=== PATIENT | female | born 1990 | race Caucasian/White ===

== ENCOUNTER → 2017-05-14 09:40 | Outpatient (CLI) | payer BC, SELFPAY ==
--- NOTE | 2017-05-14 09:45 | US_ITS ---
US OB /maternal detail: INDICATION: ITS.REASON: 20 wk+ Anatomy Scan ORDERING PHYSICIAN: Arron Nielson MD PATIENT AGE: 26 years TECHNIQUE: ultrasound transabdominal scanning. COMPARISON: No previous relevant studies. FINDINGS: Single viable intrauterine gestation. Breech position. Placenta: Anterior placenta grade 1. There is average amount fluid. The cervix appears satisfactory. Closed and measuring 3 cm in length. Complete survey performed and was unremarkable on the submitted images as in PACS. No discrete anomalies identified on survey imaging by technologist. Active fetus. Three-vessel cord with satisfactory umbilical cord insertion. 4- chamber heart noted. Survey of brain & ventricles. Face and neck survey unremarkable. Diaphragm and chest views unremarkable. Abdomen: Both kidneys noted and unremarkable. Stomach noted and satisfactory. Spine: Survey of the spine satisfactory with no anomalies identified nor imaged. Both arms and legs noted. Amniotic Fluid: Adequate. Maternal adnexa: No significant findings. Measurements: Average ultrasound age 19 weeks 2 days. Gestational Age 20 weeks 2 days. Estimated due date by ultrasound age 610/06/2017. Estimated weight 286 grams. This is 8 th percentile based on last menstrual period BPD = 19 weeks 1 day OFD = 20 weeks 4 days HC = 19 weeks 2 days AC = 19 weeks 4 days FL = 19 weeks 1 day Heart Rate = 158 BPM Cerebellum = 20 weeks 0 days Humerus = 18 weeks 5 days HC/AC is 1.16. CI is 71%. FL/BPD is 69%. FL/AC is 21%. IMPRESSION: There is a single live fetus in breech presentation with average ultrasound age of 19 weeks 2 days. No obvious anomalies. Please see above for detail
== END ==
PROVIDERS: Family Provider Emergency Medicine; PCP Nurse Practitioner Family; Visit Provider Nurse Practitioner Obstetrics & Gynecology
DX: Z36.0 Encounter for antenatal screening for chromosomal anomalies (principal)
CPT/HCPCS: 76811

== ENCOUNTER 2017-08-28 09:14 | Outpatient (CLI) | payer BC, SELFPAY ==
[2017-08-28 09:38] VITALS: BP 122/69; PULSE 75; RESP 18; TEMP 36.6; O2SAT 99; BMI 31.8
[2017-08-28 10:41] LABS: Basophils % 0.3 % (0.1-2.0); Eosinophils # 0.1 K/mm3 (0.0-0.4); Eosinophils % 0.9 % (0.1-12.0); Hematocrit 33.9 % (37.0-47.0); Hemoglobin 11.2 g/dL (12.2-16.2); Lymphocytes # 1.8 K/mm3 (0.7-4.5); Lymphocytes % 15.6 K/mm3 (10-50); Mean Corpuscular HGB Conc 33.2 g/dL (31.8-35.4); Mean Corpuscular Hemoglobin 29.5 pg (27.0-31.2); Mean Corpuscular Volume 88.9 fl (81-99); Mean Platelet Volume 8.4 fl (7.4-10.4); Monocytes # 0.7 K/mm3 (0.1-1.0); Neutrophils # 8.7 K/mm3 (1.8-7.8); Neutrophils % 77.2 % (37.0-80.0); Platelet Count 304 K/mm3 (142-424); Red Blood Count 3.81 M/mm3 (4.20-5.40); Red Cell Distribution Width 12.7 % (11.5-17.5); White Blood Count 11.3 K/mm3 (4.8-10.8)
[2017-08-28 10:52] LABS: Alanine Aminotransferase 14 U/L (12-78); Albumin Level 2.5 gm/dL (3.4-5.0); Albumin/Globulin Ratio 0.6 (1.1-1.8); Alkaline Phosphatase 78 U/L (46-116); Anion Gap 15.1 mEq/L (5-15); Aspartate Amino Transferase 13 U/L (15-37); Bilirubin,Total 0.2 mg/dL (0.2-1.0); Blood Urea Nitrogen 14 mg/dL (7-18); Calcium 8.5 mg/dL (8.5-10.1); Carbon Dioxide 22 mmol/L (21.0-32.0); Chloride 105 mmol/L (98-107); Creatinine Clearance Estimated 189 mL/min (0-300); Creatinine,Serum 0.67 mg/dL (0.55-1.02); Estimated Glomerular Filt Rate 106 ml/min (>60); GFR (African American) 128 ML/MIN (>60); Globulin 4.4 gm/dl (1.3-3.2); Glucose 99 mg/dL (74-106); Potassium 4.1 mmoL/L (3.5-5.1); Sodium 138 mmol/L (136-145); Total Protein,Serum 6.9 gm/dL (6.4-8.2)
--- NOTE | 2017-08-28 12:24 | HMH.ACPN2 ---
Internal Medicine - PN: Subj *Date: 08/28/17 *Time: 12:24 Interval history: She is a 26-year-old 2 para 1 who is 35 weeks gestational age. Her son had surgery this morning and after his surgery she felt lightheaded. As result of that she came up to labor and delivery. Exam Vital signs and Labs for Last 24 Hours: Temp Pulse Resp BP Pulse Ox 97.9 F 75 18 122/69 99 08/28/17 09:38 08/28/17 09:38 08/28/17 09:38 08/28/17 09:38 08/28/17 09:38 Laboratory Results - last 24 hr 08/28/17 10:25: WBC 11.3 H, RBC 3.81 L, Hgb 11.2 L, Hct 33.9 L, MCV 88.9, MCH 29.5, MCHC 33.2, RDW 12.7, Plt Count 304, MPV 8.4, Neut % (Auto) 77.2, Lymph % (Auto) 15.6, [place] % (Auto) 6.0, Eos % (Auto) 0.9, Baso % (Auto) 0.3, Neut # (Auto) 8.7 H, Lymph # (Auto) 1.8, [place] # (Auto) 0.7, Eos # (Auto) 0.1, Baso # (Auto) 0.0 08/28/17 10:25: Sodium 138, Potassium 4.1, Chloride 105, Carbon Dioxide 22, Anion Gap 15.1 H, BUN 14, Creatinine 0.67, Estimated Creat Clear 189, Estimated GFR 106, Est GFR ( Amer) 128, Glucose 99, Calcium 8.5, Total Bilirubin 0.2, AST 13 L, ALT 14, Alkaline Phosphatase 78, Total Protein 6.9, Albumin 2.5 L, Globulin 4.4 H, Albumin/Globulin Ratio 0.6 L I & O for Last 24 hours: Intake & Output 08/26/17 08/27/17 08/28/17 08/29/17 11:59 11:59 11:59 11:59 Weight 209 lb 8 oz - Constitutional no acute distress Assessment and Plan (1) Lightheadedness Current visit: Yes Status: Acute Category: Medical Code(s): R42 - Dizziness and giddiness - Assessment and plan all Dx Assessment and Plan for all problems:: We did routine blood work which was normal. She had a liter of D5 Ringer's and she feels much better. Her blood pressure is normal. She has an occasional contraction. Her urinalysis was negative. She has been drinking well and she has eaten lunch. She will follow-up with me next week.
== END 2017-08-28 12:35 | disposition home or self-care (01) ==
LOC: OBOUT 09:17 → OB 09:18
PROVIDERS: PCP Internal Medicine Adolescent Medicine; Visit Provider Nurse Practitioner Obstetrics & Gynecology
DX: O26.893 Other specified pregnancy related conditions, third trimester (principal); Z3A.35 35 weeks gestation of pregnancy; R42 Dizziness and giddiness; R11.0 Nausea; R55 Syncope and collapse
CPT/HCPCS: 59025; 80053; 85025; 96360

== ENCOUNTER → 2017-09-03 17:34 | Outpatient (REF) | payer BC, SELFPAY | LOC: LAB 17:34 | PROVIDERS: Visit Provider Nurse Practitioner Obstetrics & Gynecology | DX: Z34.90 Encounter for supervision of normal pregnancy, unspecified, unspecified trimester (principal) | CPT/HCPCS: 86403 ==

== ENCOUNTER 2017-09-19 21:07 | Outpatient (CLI) | payer BC, SELFPAY ==
[2017-09-19 21:22] VITALS: BMI 32.2
[2017-09-19 21:29] LABS: Microscopic, Urine URINE MICROSCOPIC (MICROSCOPIC)
[2017-09-19 21:31] LABS: Appearance,Urine CLEAR (Clear); Bilirubin,Urine Negative (Negative); Blood, Urine 1+ (Negative); Color,Urine YELLOW (Yellow); Glucose,Urine (UA) Negative (Negative); Ketones,Urine Negative (Negative); Leukocyte Esterase,Urine Negative (Negative); Nitrate,Urine Negative (Negative); Protein,Urine Negative (Negative); Specific Gravity, Urine 1.015 (1.005-1.030); Urobilinogen,Urine 0.2 EU/dl (0.2)
[2017-09-19 23:32] VITALS: BP 145/90; PULSE 91; RESP 18; TEMP 36.9; O2SAT 96; BMI 32.2
== END 2017-09-19 23:55 | disposition home or self-care (01) ==
LOC: OBOUT 21:10 → OB 21:12
PROVIDERS: PCP Nurse Practitioner Obstetrics & Gynecology; Visit Provider Obstetrics & Gynecology
DX: O62.8 Other abnormalities of forces of labor (principal); Z3A.38 38 weeks gestation of pregnancy
CPT/HCPCS: 59025; 81001; 96360; 96372

== ENCOUNTER 2017-09-20 15:21 | Inpatient (IN) ==
--- NOTE | 2017-09-20 17:12 | Progress Note ---
Internal Medicine - PN: Subj *Date: 09/20/17 *Time: 17:10 Interval history: This 27-year-old 2, para 1, Ab0 white female is admitted at 38-5/7 weeks with regular contractions and leaking amniotic fluid. Slight meconium tinge to the fluid. The cervix is 3 cm dilated and 80% effaced with the presenting vertex at -2 station. Amniotomy is accomplished, and an internal monitor has been placed. Epidural has been called for. There are some decelerations noted, and an amnioinfusion has been started. The patient has been informed of the possible need for , but will be observed at this time. Exam I & O for Last 24 hours: Intake & Output 09/18/17 09/19/17 09/20/17 09/21/17 11:59 11:59 11:59 11:59 Weight 212 lb 0.015 oz
--- NOTE | 2017-09-20 17:48 | Progress Note ---
[facility] Anesthesia Checklist - Patient Identification Patient Identification: Arm Band, Verbal (Name & ) - Structural Data Admitted From: Inpatient Consent for Planned Operative Procedure(s) Verified: Yes Verified Documents: Surgical Consent, History and Physical - Additional verifications Patient : Yes Anesthesia Reactions: No - Airway Assessment C-Spine Mobility Assessed: Yes TMJ Mobility Assessed: Yes Dentition: Good Dentition - Neurological Assessment Level of Consciousness: Awake Hx Seizures: No Numbness or tingling in extremities: No - Anesthesia Plan Anesthesia Risk discussed: Yes Anesthesia Plan: Verified ASA Class: II Anesthesia Type: Epidural [facility] Anesthesia HX I have reviewed the patient's past medical history: Yes Medical History: Reports:: Asthma, Migraine Laterality Cases: Bilateral: Tonsillectomy Other Surgeries: Yes: No Previous Surgery. No: Amputation: No Fractures: No *Family Hx:: No significant family history
[2017-09-20 17:54] LABS: Basophils % 0.1 % (0.1-2.0); Eosinophils % 0.3 % (0.1-12.0); Hematocrit 36.8 % (37.0-47.0); Hemoglobin 11.8 g/dL (12.2-16.2); Lymphocytes # 1.5 K/mm3 (0.7-4.5); Lymphocytes % 13.3 K/mm3 (10-50); Mean Corpuscular Hemoglobin 28.1 pg (27.0-31.2); Mean Corpuscular Volume 87.5 fl (81-99); Mean Platelet Volume 8.3 fl (7.4-10.4); Monocytes # 0.5 K/mm3 (0.1-1.0); Monocytes % 4.3 % (1.7-9.3); Neutrophils # 9.3 K/mm3 (1.8-7.8); Platelet Count 284 K/mm3 (142-424); Red Blood Count 4.21 M/mm3 (4.20-5.40); Red Cell Distribution Width 13.5 % (11.5-17.5); White Blood Count 11.4 K/mm3 (4.8-10.8)
--- NOTE | 2017-09-20 18:33 | Progress Note ---
Internal Medicine - PN: Subj *Date: 09/20/17 *Time: 18:33 Interval history: After her amnioinfusion, decelerations of . She is having regular contractions. An epidural has been placed and she is comfortable. Her cervix is now completely effaced, 7-8 cm, with a presenting vertex at 0 station. Exam Vital signs and Labs for Last 24 Hours: Laboratory Results - last 24 hr 09/20/17 17:45: Blood Type A Positive 09/20/17 17:45: WBC 11.4 H, RBC 4.21, Hgb 11.8 L, Hct 36.8 L, MCV 87.5, MCH 28.1 , MCHC 32.0, RDW 13.5, Plt Count 284, MPV 8.3, Neut % (Auto) 82.0 H, Lymph % ( Auto) 13.3, [place] % (Auto) 4.3, Eos % (Auto) 0.3, Baso % (Auto) 0.1, Neut # (Auto ) 9.3 H, Lymph # (Auto) 1.5, [place] # (Auto) 0.5, Eos # (Auto) 0.0, Baso # (Auto) 0.0 I & O for Last 24 hours: Intake & Output 09/18/17 09/19/17 09/20/17 09/21/17 11:59 11:59 11:59 11:59 Weight 212 lb 0.015 oz
--- NOTE | 2017-09-20 20:05 | Procedure Note ---
- Delivery Note Delivery Date:: 09/20/17 Delivery Time:: 19:50 Anesthesia Type: Epidural Was labor medically induced?: No Gestational age (weeks): 38 (38 5/7) delivered prior to 39 weeks?: Yes Justification for early elective delivery:: Active Labor Infant Gender: Female at 1 minute: 10 at 5 minutes: 10 AF:: Slight meconium staining Delivery Procedure:: This 27-year-old 2, now para 2, Ab0 white female was admitted at 38 5/7 weeks in active labor with leaking membranes. She was 3 cm dilated at the time of admission. There were some early decelerations, treated with amnioinfusion, which then cleared. She labored under a labor epidural, which worked well, and went steadily to completion at 1920. She pushed effectively and delivered spontaneously, without an episiotomy, at 1949. There was a nuchal cord 1, which was easily reduced. There was no meconium at the time of delivery ( slight staining had been noted previously). The baby's nasal and oropharynx were bulb suctioned, and the baby it was delivered. The cord was clamped and cut, 3 vessels were noted to be within cord, and cord blood was obtained. The cord pH is pending. The baby was handed into the arms of the attending RN, who assigned Apgars of 10 at 1 minute and 10 at 5 minutes to this 6 lbs. 6 oz., 18 inch female infant, born at 1950. The placenta delivered spontaneously, intact , at 1951, making the total time in labor 5 hours 52 minutes. The uterus was inspected and was felt to be clean, and was involuting well, with IV Pitocin running. There were no lacerations. The rectovaginal septum was intact at the close of the procedure. The sponge and needle count was correct. The estimated blood loss was 350 cc. The patient tolerated the procedure well, was recovered in excellent condition. Her blood type is A+. Her rubella titer is immune. She plans to breast-feed. Placental Delivery Description: Spontaneous
[2017-09-21 08:07] LABS: Hematocrit 35.2 % (37.0-47.0); Hemoglobin 11.4 g/dL (12.2-16.2)
--- NOTE | 2017-09-21 11:01 | Progress Note ---
Internal Medicine - PN: Subj *Date: 09/21/17 *Time: 11:00 Interval history: She is doing very well this morning. She is eating and drinking and ambulating. She is breast-feeding. Her lochia is normal. Exam Vital signs and Labs for Last 24 Hours: Temp Pulse Resp BP Pulse Ox 98.2 F 68 16 118/68 98 09/21/17 08:00 09/21/17 08:00 09/21/17 08:00 09/21/17 08:00 09/21/17 08:00 Laboratory Results - last 24 hr 09/20/17 17:45: Blood Type A Positive, Antibody Screen Negative 09/20/17 17:45: WBC 11.4 H, RBC 4.21, Hgb 11.8 L, Hct 36.8 L, MCV 87.5, MCH 28.1 , MCHC 32.0, RDW 13.5, Plt Count 284, MPV 8.3, Neut % (Auto) 82.0 H, Lymph % ( Auto) 13.3, [place] % (Auto) 4.3, Eos % (Auto) 0.3, Baso % (Auto) 0.1, Neut # (Auto ) 9.3 H, Lymph # (Auto) 1.5, [place] # (Auto) 0.5, Eos # (Auto) 0.0, Baso # (Auto) 0.0 09/20/17 20:11: Cord ABG pH 7.36 09/21/17 07:55: Hgb 11.4 L, Hct 35.2 L I & O for Last 24 hours: Intake & Output 09/18/17 09/19/17 09/20/17 09/21/17 11:59 11:59 11:59 11:59 Weight 212 lb - Constitutional no acute distress Assessment and Plan (1) Normal delivery at term Current visit: Yes Status: Acute Category: Medical Code(s): O80 - Encounter for full-term uncomplicated delivery - Assessment and plan all Dx Assessment and Plan for all problems:: She is doing very well. She will be seen tomorrow and discharged home.
--- NOTE | 2017-09-22 07:48 | Progress Note ---
Internal Medicine - PN: Subj *Date: 09/22/17 *Time: 07:48 Interval history: This is day #2. The patient is afebrile. Vital signs stable. Hemoglobin 11.4 g. She is breast-feeding well. Lochia is normal. Uterine fundus is involuting well. She will be discharged today. Exam Vital signs and Labs for Last 24 Hours: Temp Pulse Resp BP Pulse Ox 98.2 F 68 16 118/68 98 09/21/17 08:00 09/21/17 08:00 09/21/17 08:00 09/21/17 08:00 09/21/17 08:00 Laboratory Results - last 24 hr 09/21/17 07:55: Hgb 11.4 L, Hct 35.2 L I & O for Last 24 hours: Intake & Output 09/19/17 09/20/17 09/21/17 09/22/17 11:59 11:59 11:59 11:59 Weight 212 lb Assessment and Plan (1) Normal delivery at term Current visit: Yes Status: Acute Category: Medical Code(s): O80 - Encounter for full-term uncomplicated delivery
--- NOTE | 2017-09-22 07:54 | Discharge Summary ---
General - General Admission date:: 09/20/17 Discharge date: 09/22/17 (This 27-year-old 2, now para 2, Ab0 white female was admitted at 38 5/7 weeks in active labor with cervix 3 cm dilated. She was leaking amniotic fluid which was slightly meconium-stained. She underwent an amnioinfusion and the baby looked good throughout her labor which was uneventful. She labored under a labor epidural, which worked well. She delivered spontaneously, without an episiotomy, at 1950 on 09/20/17. The baby was an at 10/10, 6 lbs. 6 oz., 18 inch female infant, who is breast- feeding and has done well. , the patient is done well. She is eating and ambulating and has had a bowel movement. Her uterine fundus is involuting well. Her lochia is normal. Her hemoglobin is 11.4 g, but she is clinically stable. She is not a smoker. She is discharged home on the second day on iron and vitamins, and on Tylenol and Motrin, as needed for pain. She is given appropriate instructions as to diet, exercise, and perineal care, and she is to return to Dr. Nielson's office in 2 weeks for follow-up. Her blood type is A+. Her rubella titer is immune.) Objective Vital signs: Temp Pulse Resp BP Pulse Ox 98.2 F 68 16 118/68 98 09/21/17 08:00 09/21/17 08:00 09/21/17 08:00 09/21/17 08:00 09/21/17 08:00 Results Labs on day of discharge: Labs from last 24 hours 09/21/17 07:55 Hgb 11.4 L Hct 35.2 L DS: Diagnosis - Discharge Diagnosis (1) Normal delivery at term Status: Acute Discharge Plan - Patient Discharge Instructions - Follow up Plan Home Medications: Home Medications Medication Instructions Recorded Confirmed Type 1 tab PO HS 05/13/17 09/21/17 History vitamin,calcium,dqinaoqz-mtsb-withb acid tablet Prescriptions/Medication Reconciliation: No Action vitamin,calcium,pzykbduz-hxlq-gqmcw acid tablet 1 tab PO HS
[2017-09-22 09:55] VITALS: BP 119/78
== END 2017-09-22 10:45 | disposition home or self-care (01) ==
LOC: OBOUT 15:21 → OB 15:22
PROVIDERS: ADMIT Obstetrics & Gynecology; ATTEND Nurse Practitioner Obstetrics & Gynecology

== ENCOUNTER 2023-02-26 21:30 | Emergency (ER) | payer SELFPAY ==
[2023-02-26 21:31] VITALS: BP 147/90; PULSE 87; RESP 20; TEMP 36.8; O2SAT 100; BMI 24.3
--- NOTE | 2023-02-26 21:39 | ECG_ITS ---
APPROVED REPORT Exam: Resting ECG HR:87 bpm ECG Measurements Heart Rate 87 AXES WI 141 P 72 QRSd 85 QRS 85 QT 343 T 52 QTc 388 Conclusion SINUS RHYTHM WITH SINUS ARRHYTHMIA NORMAL ECG UNCONFIRMED REPORT Electronically signed by : Braden Lim MD 02/27/2023 21:39:13
[2023-02-26 21:58] LABS: POC Glucose,Bedside 106 (70-110)
--- NOTE | 2023-02-26 22:05 | XR_ITS ---
PROCEDURE INFORMATION: Exam: XR Chest Exam date and time: 02/26/2023 10:27 PM Age: 32 years old Clinical indication: Dyspnea TECHNIQUE: Imaging protocol: Radiologic exam of the chest. Views: 1 view. COMPARISON: No relevant prior studies available. FINDINGS: Lungs: No consolidation or pulmonary edema. Few calcified granulomata. Pleural spaces: No pleural effusion. No pneumothorax. Heart/Mediastinum: Cardiomediastinal silhouette is normal. Bones/joints: No acute abnormality. IMPRESSION: No acute cardiopulmonary disease.
--- NOTE | 2023-02-26 22:07 | HMH.EDGENADL ---
Discharge Plan Disposition Patient Disposition: Still a Patient Prescriptions Prescriptions: No Action sulfamethoxazole-trimethoprim [Bactrim DS] 800-160 mg tablet 1 tab PO BID 7 Days Qty: 14 0RF Referrals Follow up/Referrals: Sarah Sarabia [Primary Care Provider] - See instructions Clinical Impressions Clinical Impression: Palpitations, Anxiety, Chest pain, Dyspnea Discharge ED Provider: Nakia Ann General Adult HPI General Chief complaint: Shortness of Breath/Dyspnea Stated complaint: lightheaded, weakness Time Seen by Provider: 02/26/23 22:01 Mode of Arrival: Wheelchair Source of Information: Patient Limitations: No Limitations Description of Symptoms (Recalled from ER Triage Doc. by RN): Pt states she felt very anxious around 1630 today, took her anxiety medication. Did not get relief, and suddenly felt like she was going to pass out, but didn't. Heart palpitations, chest pressure, SOA and upper extremities heavy and tingling. Hx of hypoglycemia, BG is 106. History of Present Illness HPI narrative: Patient is a 32-year-old female with a history of anxiety and panic attacks presenting today with chest pain shortness of breath heart palpitations and anxiety. She took her anxiety medication without any significant improvement. Denies any exertional component to this denies being on any hormone therapy history of DVT PE lower extremity swelling prolonged immobilizations hemoptysis etc. No fevers or chills or cough. Does not endorse any exacerbating circumstances leading up to today. Related Data Previous Rx's Medication Instructions Recorded sulfamethoxazole 800 1 tab PO BID 7 days #14 tabs 08/10/18 mg-trimethoprim 160 mg tablet (Bactrim DS) Allergies Allergy/AdvReac Type Severity Reaction Status Date / Time Penicillins Allergy Verified 08/10/18 11:48 [facility] Disclaimer: The information contained in this section may have been updated after the patient was seen, as this information can be updated by other users. Social History Smoking Status: Current every day smoker tobacco type: cigarettes packs per day: 1 alcohol intake: never substance use type: denies use current occupational status: unemployed Travel in the last 8 weeks: None ROS Obtained: Yes All systems reviewed & no additional complaints except as documented Physical Exam General General appearance: alert and anxious Respiratory Respiratory exam: Present normal lung sounds bilaterally and other (Oxygen saturation 99% on room air); Absent respiratory distress, wheezes or stridor Cardiovascular Cardiovascular exam: Present regular rate; Absent tachycardia Abdominal Exam Abdominal exam: Present soft; Absent distention or tenderness Neurological Exam Neurological exam: Present alert and oriented X3; Absent CN II-XII intact, normal gait or motor sensory deficit Psychiatric Psychiatric exam: Present anxious Medical Decision Making Darek Inquiry Pt receiving controlled substance: No Vital Signs: 02/26/23 21:31 Temperature 98.2 F Temperature Source Oral Pulse Rate [Left] 87 Respiratory Rate 20 Blood Pressure [Right Arm] 147/90 H Blood Pressure Mean [Right Arm] 109 Blood Pressure Source [Right Arm] Automatic Cuff Blood Pressure Position [Right Arm] Sitting 02 Sat by Pulse Oximetry 100 Oxygen Delivery Method Room Air Lab Data Lab Results 02/26/23 21:46: POC Glucose 106 Orders (Tests/Meds): ED MEDICATIONS Generic Name Dose Route Start Last Admin Trade Name Freq PRN Reason Stop Dose Admin Lactated Ringer's 1,000 mls @ 999 mls/hr 02/26/23 22:15 Lactated Ringer's 1000 Ml Bag IV 02/26/23 23:15 .Q1H1M ILIANA Lorazepam 1 mg 02/26/23 22:05 Lorazepam 2mg/Ml Vial IV 02/26/23 22:06 ONCE ONE Sodium Chloride 10 ml 02/26/23 22:05 Sodium Chloride 0.9% 10ml Vial IV 03/28/23 22:04 NEEDED PRN to Dilute Lorazepam inj ORDERS Category Date Time S
[2023-02-26 22:22] LABS: Basophils % 0.3 % (0.1-2.0); Eosinophils # 0.1 K/mm3 (0.0-0.4); Eosinophils % 0.8 % (0.1-12.0); Hematocrit 44.5 % (37.0-47.0); Hemoglobin 15.1 g/dL (12.2-16.2); Lymphocytes # 1.8 K/mm3 (0.7-4.5); Lymphocytes % 13.6 % (10-50); Mean Corpuscular Hemoglobin 31.9 pg (27.0-31.2); Mean Corpuscular Volume 93.9 fl (81-99); Monocytes # 0.7 K/mm3 (0.1-1.0); Monocytes % 4.9 % (1.7-9.3); Neutrophils # 10.7 K/mm3 (1.8-7.8); Neutrophils % 80.4 % (37.0-80.0); Platelet Count 366 K/mm3 (142-424); Red Blood Count 4.73 M/mm3 (4.20-5.40); Red Cell Distribution Width 12.6 % (11.5-17.5); White Blood Count 13.3 K/mm3 (4.8-10.8)
[2023-02-26 22:24] LABS: Chloride 102 mmol/L (98-107); Sodium 137 mmol/L (136-145)
[2023-02-26 22:27] LABS: Alanine Aminotransferase 22 U/L (12-78); Albumin/Globulin Ratio 1.4 (1.1-1.8); Alkaline Phosphatase 68 U/L (38-126); Aspartate Amino Transferase 30 U/L (14-36); Bilirubin,Total 0.6 mg/dl (0.2-1.3); Blood Urea Nitrogen 11 mg/dl (7-17); Carbon Dioxide 23 mmol/L (22.0-30.0); Creatinine Clearance Estimated 92 mL/min (50-200); Estimated Glomerular Filt Rate 64 ml/min (>60); GFR (African American) 77 ML/MIN (>60); Globulin 3.5 g/dL (1.3-3.2); Total Protein,Serum 8.5 g/dl (6.3-8.2)
[2023-02-26 22:28] LABS: Calcium 9.3 mg/dl (8.4-10.2); Glucose 116 mg/dl (74-100); Magnesium 2.1 mg/dl (1.6-2.3)
[2023-02-26 22:49] LABS: Troponin I < 0.01 ng/ml (0.00-0.034)
[2023-02-26 23:09] VITALS: BP 145/93; PULSE 78; RESP 18; TEMP 36.8; O2SAT 99
== END 2023-02-26 23:10 | disposition home or self-care (01) ==
PROVIDERS: Emergency Provider Student in an Organized Health Care Education/Training Program; PCP Emergency Medicine
DX: R07.9 Chest pain, unspecified (principal); I49.9 Cardiac arrhythmia, unspecified; R06.02 Shortness of breath; R00.2 Palpitations; F41.1 Generalized anxiety disorder; F17.210 Nicotine dependence, cigarettes, uncomplicated
CPT/HCPCS: 71045; 80053; 82962; 83735; 84443; 84484; 85025; 93005; 96361; 96374; 99284

== ENCOUNTER 2023-10-28 06:47 | Outpatient (CLI) | payer OTHER, SELFPAY ==
--- NOTE | 2023-10-28 06:51 | CT_ITS ---
FINAL REPORT TECHNIQUE: Thin section axial CT images of the facial bones and sinuses were obtained without contrast. Coronal and sagittal reformatted images were also obtained. This study was performed with techniques to keep radiation doses as low as reasonably achievable, (ALARA). Individualized dose reduction techniques using automated exposure control or adjustment of mA and/or kV according to the patient's size were employed. CLINICAL HISTORY: SINUS PAIN..MIGRAINE X 5 YEARS COMPARISON: None FINDINGS: There is mild mucosal thickening present in the left maxillary sinus. No fluid levels are identified. The ostiomeatal units have an unremarkable appearance. The nasal septum is in the midline. No fracture or acute bony abnormality is identified. IMPRESSION: Mild mucosal thickening present in the left maxillary sinus, otherwise unremarkable sinus series. Reviewed, Interpreted and Dictated by Jonh Humphreys III, MD Transcribed by Maria Antonia Erwin Authenticated and . [facility]
== END 2023-10-28 23:59 | disposition home or self-care (01) ==
LOC: RAD 06:48
PROVIDERS: PCP Nurse Practitioner; Visit Provider Nurse Practitioner
DX: J34.89 Other specified disorders of nose and nasal sinuses (principal); J32.9 Chronic sinusitis, unspecified; G43.909 Migraine, unspecified, not intractable, without status migrainosus
CPT/HCPCS: 70486

== ENCOUNTER 2024-01-25 12:53 | Emergency (ER) | payer OTHER, SELFPAY ==
[2024-01-25] VITALS (8 sets, daily range): BP systolic 120–132; BP diastolic 71–93; PULSE 50–66; RESP 14–18; TEMP 36.6–37; O2SAT 99–100; BMI 24.3
--- NOTE | 2024-01-25 13:25 | EXP.UTC ---
Discharge Plan Disposition Patient Disposition: Still a Patient Prescriptions Prescriptions: No Action lorazepam 1 mg tablet 1 mg PO DAILY Patient Comments: TAKE 1 TABLET BY MOUTH ONCE DAILY NEEDED FOR ANXIETY propranolol 20 mg Tablet 20 mg PO DAILY sertraline 50 mg tablet 50 mg PO DAILY Patient Comments: TAKE 1 TABLET BY MOUTH ONCE DAILY topiramate 50 mg tablet 50 mg PO DAILY Patient Comments: TAKE 1 TABLET BY MOUTH ONCE DAILY Ubrelvy 100 mg tablet 100 mg PO DAILYP PRN (Reason: Migraine Headache) Patient Comments: TAKE ONE TABLET BY MOUTH AT ONSET OF MIGRAINE. IF SYMPTOMS PERSIST, A SECOND DOSE MAY BE TAKEN IN 2 HOURS. DO NOT EXCEED 2 DOSES IN A 24 HOUR PERIOD, UNLESS OTHERWISE INSTRUCTED BY YOUR PHYSICIAN Referrals Follow up/Referrals: Gianna Nava APRN [Primary Care Provider] - See instructions Print Language Print Language: Kinyarwanda Discharge ED Provider: Zita Doyle [facility] [place] General Chief complaint: Headache Stated complaint: headche, swelling, Mode of Arrival: Ambulatory Source of Information: Patient Limitations: No Limitations Time Seen by Provider: 01/25/24 13:25 Description of Symptoms (Recalled from Triage Doc. by RN): PATIENT STATES SHE IS HAVING EPISODES WHERE SHE FEELS LIKE SHE IS GOING TO PASS OUT FOLLOWING A MIGRAINE TODAY HEENT Symptoms (Recalled from RN notes): Yes Resp Symptoms (Recalled from RN notes): No Skin Symptoms (Recalled from RN notes): No MS Symptoms (Recalled from RN notes): No Functional Status (Recalled from RN notes): WNL History of Present Illness Provider Complaint: Patient states that she has a hx of migraines and has had one on and off all week and her migraine medication has not helped to control it States today her headache is better but now she is feeling off like she is going to pass out, states she initially thought it may have been a panic attack and took her medication but this isnt her normal symptoms with panic attack and she feels like she is slower to respond than normal states that she has been having a little swelling in her hands also and not able to wear her rings Related Data Home Medications ?Medication ?Instructions ?Recorded ?Confirmed lorazepam 1 mg tablet 1 mg PO DAILY 01/25/24 01/25/24 propranolol 20 mg tablet 20 mg PO DAILY 01/25/24 01/25/24 sertraline 50 mg tablet 50 mg PO DAILY 01/25/24 01/25/24 topiramate 50 mg tablet 50 mg PO DAILY 01/25/24 01/25/24 ubrogepant 100 mg tablet (Ubrelvy) 100 mg PO DAILYP PRN Migraine 01/25/24 01/25/24 Headache Allergies Allergy/AdvReac Type Severity Reaction Status Date / Time Penicillins Allergy Verified 08/10/18 11:48 Worker's Comp Is this a Worker's Comp case?: No [facility] Disclaimer: The information contained in this section may have been updated after the patient was seen, as this information can be updated by other users. Medical History (Updated 01/25/24 @ 13:25 by Lorena Farfan RN) Anxiety Migraine Hypertension Surgical History (Updated 01/25/24 @ 13:25 by Lorena Farfan RN) History of tonsillectomy Social History Smoking Status: Current every day smoker tobacco type: cigarettes packs per day: 1 alcohol intake: never substance use type: denies use current occupational status: unemployed Travel in the last 8 weeks: None ROS Obtained: Yes All systems reviewed & no additional complaints except as documented and Yes Systems reviewed as appropriate & no additional complaints except as documented Constitutional Constitutional: Reports system reviewed and no additional complaints, except as documented, Reports as per HPI and Reports headache(s) (on and off all week feels better now) Eyes Eyes: Denies loss of vision ENT Ears, Nose, Mouth, and Throat: Reports system reviewed and no additional complaints, except as documented, Reports as per HPI, Reports dizziness and Reports headache(s) (on and off all week feels better now) Cardiovascular Cardiovascular: Reports system reviewed and no additional complaints, except as documented and Reports as per HPI Respiratory Respiratory: Reports system reviewed and no additional complaints, except as documented and Reports as per HPI Gastrointestinal Gastrointestingal: Reports system reviewed and no additional complaints, except as documented and as per HPI Neurologic Neurologic: Reports system reviewed and no additional complaints, except as documented, Reports as per HPI, Denies abnormal movements, Denies abnormal speech, Reports dizziness, Reports headache(s) (on and off all week feels better now), Denies loss of vision, Denies other visual disturbances and Reports other (lightheadedness, near syncope, trouble concentrating) Physical Exam General General appearance: alert and in no apparent distress Respiratory Respiratory exam: Present normal lung sounds bilaterally; Absent respiratory distress or wheezes Cardiovascular Cardiovascular exam: Present regular rate, normal rhythm and normal heart sounds Neurological Exam Neurological exam: Present alert and oriented X3 Medical Decision Making Medical Records Screening: Per USPSTF and CDC recommendations, given the prevalence of disease in our region, it is our hospital?s policy to screen for HIV and viral Hepatitis for all patients aged 18 and over and those with ongoing risk factors. Darek Inquiry Pt receiving controlled substance: No Darek was queried for this patient: No Vital Signs: 01/25/24 13:19 Temperature 98.6 F Temperature Source Oral Pulse Rate [Left Brachial] 61 Respiratory Rate 18 Blood Pressure [Left Arm] 130/78 Blood Pressure Mean [Left Arm] 95 Blood Pressure Source [Left Arm] Automatic Cuff Blood Pressure Position [Left Arm] Sitting 02 Sat by Pulse Oximetry 99 Oxygen Delivery Method Room Air Lab Data 01/25/24 14:16 01/25/24 14:16 Medical Decision Narrative: Patient states that she has been having headache on and off all week and her prescribed headache medication hasnt worked, today headache better but now having dizziness, lightheadedness, and feeling like she is slow to respond and states feels off discussed with patient and due to complaints of feeling off and near syncope will transfer to the ED for furhter work up and evaluation Called ED patient moved to ED for further evaluation
[2024-01-25 13:51] LABS: Microscopic, Urine URINE MICROSCOPIC (MICROSCOPIC)
[2024-01-25 14:09] LABS: Appearance,Urine CLEAR (Clear); Bilirubin,Urine Negative (Negative); Blood, Urine Negative (Negative); Color,Urine YELLOW (Yellow); Glucose,Urine (UA) Negative (Negative); Ketones,Urine Negative (Negative); Leukocyte Esterase,Urine Negative (Negative); Nitrate,Urine Negative (Negative); Protein,Urine Negative (Negative); Specific Gravity, Urine <= 1.005 (1.005-1.030); Urobilinogen,Urine 0.2 EU/dl (0.2)
[2024-01-25 14:11] LABS: Squamous Epithelial Cell,Urine Occasional #/hpf (0-5); WBC,Urine Occasional #/hpf (0-3)
--- NOTE | 2024-01-25 14:11 | PC.NURSE ---
pt arrived to ed from [facility] via wheelchair
--- NOTE | 2024-01-25 14:59 | ED_ITS ---
Discharge Plan Disposition Patient Disposition: Still a Patient Condition: Good Prescriptions Prescriptions: No Action lorazepam 1 mg tablet 1 mg PO DAILY Patient Comments: TAKE 1 TABLET BY MOUTH ONCE DAILY NEEDED FOR ANXIETY propranolol 20 mg Tablet 20 mg PO DAILY sertraline 50 mg tablet 50 mg PO DAILY Patient Comments: TAKE 1 TABLET BY MOUTH ONCE DAILY topiramate 50 mg tablet 50 mg PO DAILY Patient Comments: TAKE 1 TABLET BY MOUTH ONCE DAILY Ubrelvy 100 mg tablet 100 mg PO DAILYP PRN (Reason: Migraine Headache) Patient Comments: TAKE ONE TABLET BY MOUTH AT ONSET OF MIGRAINE. IF SYMPTOMS PERSIST, A SECOND DOSE MAY BE TAKEN IN 2 HOURS. DO NOT EXCEED 2 DOSES IN A 24 HOUR PERIOD, UNLESS OTHERWISE INSTRUCTED BY YOUR PHYSICIAN Referrals Follow up/Referrals: Gianna Nava APRN [Primary Care Provider] - See instructions Clinical Impressions Clinical Impression: Left-sided trigeminal neuralgia Instructions Patient Instructions: DI for Trigeminal Neuralgia Print Language Print Language: Swazi Discharge ED Provider: Jewel Coello General Adult HPI <YUNIER Bradley - Last Filed: 01/25/24 17:38> General Chief complaint: Headache Stated complaint: headche, swelling, Time Seen by Provider: 01/25/24 13:25 Mode of Arrival: Ambulatory Source of Information: Patient Limitations: No Limitations Description of Symptoms (Recalled from ER Triage Doc. by RN): Pt. states she has had a migraine for about 1 week . She takes topamax and ubrelvy, and had both this morning. She states she still has the sensation of a migraine and is having nausea and feels weak. [facility] and was transfered to ED for futher work-up. History of Present Illness HPI narrative: Patient presents for evaluation of a headache. Patient has had 5-1/2 years of intermittent left-sided facial pain. She has been working under the tentative diagnosis of a migraine and is on Ubrelvy Topamax and Imitrex. However over the last week she has had near daily headaches without relief. She has never been evaluated by neurology in the past. Today patient reports that while in the midst of a headache she was feeling lightheaded nauseous and weak as well as dizzy both with standing and seated. She does not describe room spinning. She states the pain is basically below the ear on the left side of her face extending towards her midline sometimes it involves the entire left side of her face. She has no scalp tenderness she has no aura. Currently her headache is abated and it just aches . She denies fever chills hemoptysis hematochezia melena nausea vomiting diarrhea. Related Data Home Medications ?Medication ?Instructions ?Recorded ?Confirmed lorazepam 1 mg tablet 1 mg PO DAILY 01/25/24 01/25/24 propranolol 20 mg tablet 20 mg PO DAILY 01/25/24 01/25/24 sertraline 50 mg tablet 50 mg PO DAILY 01/25/24 01/25/24 topiramate 50 mg tablet 50 mg PO DAILY 01/25/24 01/25/24 ubrogepant 100 mg tablet (Ubrelvy) 100 mg PO DAILYP PRN Migraine 01/25/24 01/25/24 Headache Allergies Allergy/AdvReac Type Severity Reaction Status Date / Time Penicillins Allergy Verified 08/10/18 11:48 [facility] <YUNIER Bradley - Last Filed: 01/25/24 17:38> [facility] Disclaimer: The information contained in this section may have been updated after the patient was seen, as this information can be updated by other users. Medical History (Updated 01/25/24 @ 16:44 by YUNIER Bradley) Anxiety Migraine Hypertension Surgical History (Updated 01/25/24 @ 13:25 by Lorena Farfan RN) History of tonsillectomy Social History Smoking Status: Current every day smoker tobacco type: cigarettes packs per day: 1 alcohol intake: never substance use type: denies use current occupational status: unemployed Travel in the last 8 weeks: None <YUNIER Bradley - Last Filed: 01/25/24 17:38> ROS Obtained: Yes Systems reviewed as appropriate & no additional complaints except as documented Physical Exam <YUNIER Bradley - Last Filed: 01/25/24 17:38> General General appearance: alert and in no apparent distress Eye Eye exam: Present normal appearance, PERRL and EOMI; Absent conjunctival redness ENT ENT exam: Present TM's normal bilaterally Respiratory Respiratory exam: Present normal lung sounds bilaterally Cardiovascular Cardiovascular exam: Present regular rate and +S2 Neurological Exam Neurological exam: Present alert, oriented X3 and CN II-XII intact Medical Decision Making <YUNIER Bradley - Last Filed: 01/25/24 17:38> Medical Records Medical records reviewed: Yes I reviewed the patient's medical records. Screening: Per USPSTF and CDC recommendations, given the prevalence of disease in our region, it is our hospital?s policy to screen for HIV and viral Hepatitis for all patients aged 18 and over and those with ongoing risk factors. Darek Inquiry Pt receiving controlled substance: No Vital Signs: 01/25/24 13:19 01/25/24 14:11 01/25/24 14:13 Temperature 98.6 F 98.3 F Temperature Source Oral Oral Pulse Rate 63 Pulse Rate [Left Brachial] 61 65 Respiratory Rate 18 16 Blood Pressure 132/93 H Blood Pressure [Left Arm] 130/78 132/93 H Blood Pressure Mean [Left Arm] 95 106 Blood Pressure Source Blood Pressure Source [Left Arm] Automatic Cuff Automatic Cuff Blood Pressure Position Blood Pressure Position [Left Arm] Sitting Sitting 02 Sat by Pulse Oximetry 99 99 100 Oxygen Delivery Method Room Air Room Air Room Air 01/25/24 14:31 01/25/24 15:00 01/25/24 16:01 Temperature Temperature Source Pulse Rate 54 L 50 L 52 L Pulse Rate [Left Brachial] Respiratory Rate Blood Pressure 121/80 121/92 H 120/71 Blood Pressure [Left Arm] Blood Pressure Mean [Left Arm] Blood Pressure Source Blood Pressure Source [Left Arm] Blood Pressure Position Blood Pressure Position [Left Arm] 02 Sat by Pulse Oximetry 100 100 100 Oxygen Delivery Method Room Air Room Air Room Air 01/25/24 16:30 01/25/24 16:54 Temperature 97.9 F Temperature Source Oral Pulse Rate 66 58 L Pulse Rate [Left Brachial] Respiratory Rate 14 Blood Pressure 131/80 131/80 Blood Pressure [Left Arm] Blood Pressure Mean [Left Arm] Blood Pressure Source Automatic Cuff Blood Pressure Source [Left Arm] Blood Pressure Position Sitting Blood Pressure Position [Left Arm] 02 Sat by Pulse Oximetry 100 Oxygen Delivery Method Room Air Room Air Lab Data Lab results reviewed: Yes I reviewed the patient's lab results. Lab Results 01/25/24 13:39: Urine Color Yellow, Urine Appearance Clear, Urine pH 7.0, Ur Specific Cornelius <= 1.005, Urine Protein Negative, Urine Glucose (UA) Negative, Urine Ketones Negative, Urine Blood Negative, Urine Nitrate Negative, Urine Bilirubin Negative, Urine Urobilinogen 0.2, Ur Leukocyte Esterase Negative, Urine RBC None, Urine WBC Occasional, Ur Squamous Epith Cells Occasional 01/25/24 14:16: WBC 10.5, RBC 4.78, Hgb 14.9, Hct 46.8, MCV 97.9, MCH 31.1, MCHC 31.8, RDW 13.0, Plt Count 326, MPV 7.8, Neut % (Auto) 81.0 H, Lymph % (Auto) 14.4, [place] % (Auto) 3.6, Eos % (Auto) 0.6, Baso % (Auto) 0.5, Neut # (Auto) 8.5 H, Lymph # (Auto) 1.5, [place] # (Auto) 0.4, Eos # (Auto) 0.1, Baso # (Auto) 0.1, ESR 7, Sodium 139, Potassium 4.1, Chloride 108 H, Carbon Dioxide 25, Anion Gap 10.1, BUN 10, Creatinine 1.00, Estimated Creat Clear 91, Estimated GFR 63, Est GFR ( Amer) 77, Glucose 94, Calcium 9.7, Total Bilirubin 0.8, AST 23, ALT 15, Alkaline Phosphatase 53, C-Reactive Protein 0.8, Total Protein 8.0, Albumin 4.8, Globulin 3.2, Albumin/Globulin Ratio 1.5, Serum HCG, Qual Negative, HIV 1&2 Antibody Rapid Nonreactive 01/25/24 14:16 01/25/24 14:16 Orders (Tests/Meds): ED MEDICATIONS Discontinued Medications Generic Name Dose Route Start Last Admin Trade Name Freq PRN Reason Stop Dose Admin Acetaminophen 1,000 mg 01/25/24 15:05 01/25/24 15:14 Acetaminophen 1,000mg/100ml Vial IV 01/25/24 15:06 1,000 mg ONCE ONE Administration Dexamethasone Sodium Phosphate 10 mg 01/25/24 15:05 01/25/24 15:14 Dexamethasone 4mg/Ml 5ml Mdv IV 01/25/24 15:06 10 mg ONCE ONE Administration Lactated Ringer's 1,000 mls @ 999 mls/hr 01/25/24 15:05 01/25/24 15:14 Lactated Ringer's 1000 Ml Bag IV 01/25/24 16:05 999 mls/hr .Q1H1M ONE Administration Iopamidol 80 ml 01/25/24 15:30 01/25/24 15:31 Iopamidol-370 (76%);100ml Bottle IV 01/25/24 15:31 80 ml ONCE ONE Administration Meclizine HCl 25 mg 01/25/24 15:05 01/25/24 15:14 Meclizine 25mg Tablet PO 01/25/24 15:06 25 mg ONCE ONE Administration Sodium Chloride 50 ml 01/25/24 15:30 01/25/24 15:31 0.9 % Sodium Chloride 50 Ml Vial IV 01/25/24 15:31 50 ml ONCE ONE Administration Sodium Chloride 10 ml 01/25/24 15:30 01/25/24 15:31 Sodium Chloride 0.9% 10ml Syr (Rad Only) IV 01/25/24 15:31 10 ml ONCE ONE Administration ORDERS Category Date Time Status CT angio head Stat Cat Scan 01/25/24 15:[address] angio neck Stat Cat Scan 01/25/24 15:[address] head/brain wo con Stat Cat Scan 01/25/24 15:05 Completed CBC w/Auto Diff [Complete Blood Count Auto Diff] Stat Lab 01/25/24 14:16 Completed CMP [Comprehensive Metabolic Panel] Stat Lab 01/25/24 14:16 Completed CRP [C-Reactive Protein] Stat Lab 01/25/24 14:16 Completed ESR [Erythrocyte Sedimentation Rate] Stat Lab 01/25/24 14:16 Completed HCG Qualitative, Serum Stat Lab 01/25/24 14:16 Completed HIV (1&2) Antibody Rapid Stat Lab 01/25/24 14:16 Completed Hep C Ab with Reflex to RNA Stat Lab 01/25/24 14:16 Received Urinalysis and Microscopic Stat Lab 01/25/24 13:39 Completed Medical Decision Narrative: In summary patient is a 43-year-old female who presents to the emergency department for evaluation of left-sided headache . Patient is hemodynamically stable upon arrival, afebrile. Physical exam is remarkable for soreness on palpating the left side of the face but no scalp tenderness no neck tenderness no carotid bruits Connie Coma Score 15 no focal neurologic deficits no nystagmus. Differential diagnosis includes trigeminal neuralgia versus giant cell arteritis versus atypical headache versus migraine etc. Initial workup will be conducted with hematologic labs CT scan of the head without contrast CTA of the head and neck. Initial interventions include crystalloid bolus acetaminophen Decadron meclizine. Initial workup reviewed by me shows her hematologic labs are nonactionable including normal ESR and CRP and my informal interpretation of her CT scan of her head shows no acute process and CTA and CT of the neck the same prior to radiology read. Upon repeat evaluation patient reported much improved after initial intervention. Given this I suspect patient has trigeminal neuralgia given the distribution and pattern and negative workup for other pathologies although migraine still could be possible it seems unlikely to be the entirety of her symptoms. Given this patient is appropriate for discharge with recommendations to continue her follow-up with neurology for further workup. <Jewel Coello MD - Last Filed: 01/25/24 19:19> Vital Signs: 01/25/24 13:19 01/25/24 14:11 01/25/24 14:13 Temperature 98.6 F 98.3 F Temperature Source Oral Oral Pulse Rate 63 Pulse Rate [Left Brachial] 61 65 Respiratory Rate 18 16 Blood Pressure 132/93 H Blood Pressure [Left Arm] 130/78 132/93 H Blood Pressure Mean [Left Arm] 95 106 Blood Pressure Source Blood Pressure Source [Left Arm] Automatic Cuff Automatic Cuff Blood Pressure Position Blood Pressure Position [Left Arm] Sitting Sitting 02 Sat by Pulse Oximetry 99 99 100 Oxygen Delivery Method Room Air Room Air Room Air 01/25/24 14:31 01/25/24 15:00 01/25/24 16:01 Temperature Temperature Source Pulse Rate 54 L 50 L 52 L Pulse Rate [Left Brachial] Respiratory Rate Blood Pressure 121/80 121/92 H 120/71 Blood Pressure [Left Arm] Blood Pressure Mean [Left Arm] Blood Pressure Source Blood Pressure Source [Left Arm] Blood Pressure Position Blood Pressure Position [Left Arm] 02 Sat by Pulse Oximetry 100 100 100 Oxygen Delivery Method Room Air Room Air Room Air 01/25/24 16:30 01/25/24 16:54 Temperature 97.9 F Temperature Source Oral Pulse Rate 66 58 L Pulse Rate [Left Brachial] Respiratory Rate 14 Blood Pressure 131/80 131/80 Blood Pressure [Left Arm] Blood Pressure Mean [Left Arm] Blood Pressure Source Automatic Cuff Blood Pressure Source [Left Arm] Blood Pressure Position Sitting Blood Pressure Position [Left Arm] 02 Sat by Pulse Oximetry 100 Oxygen Delivery Method Room Air Room Air Lab Data Lab Results 01/25/24 13:39: Urine Color Yellow, Urine Appearance Clear, Urine pH 7.0, Ur Specific Cornelius <= 1.005, Urine Protein Negative, Urine Glucose (UA) Negative, Urine Ketones Negative, Urine Blood Negative, Urine Nitrate Negative, Urine Bilirubin Negative, Urine Urobilinogen 0.2, Ur Leukocyte Esterase Negative, Urine RBC None, Urine WBC Occasional, Ur Squamous Epith Cells Occasional 01/25/24 14:16: WBC 10.5, RBC 4.78, Hgb 14.9, Hct 46.8, MCV 97.9, MCH 31.1, MCHC 31.8, RDW 13.0, Plt Count 326, MPV 7.8, Neut % (Auto) 81.0 H, Lymph % (Auto) 14.4, [place] % (Auto) 3.6, Eos % (Auto) 0.6, Baso % (Auto) 0.5, Neut # (Auto) 8.5 H, Lymph # (Auto) 1.5, [place] # (Auto) 0.4, Eos # (Auto) 0.1, Baso # (Auto) 0.1, ESR 7, Sodium 139, Potassium 4.1, Chloride 108 H, Carbon Dioxide 25, Anion Gap 10.1, BUN 10, Creatinine 1.00, Estimated Creat Clear 91, Estimated GFR 63, Est GFR ( Amer) 77, Glucose 94, Calcium 9.7, Total Bilirubin 0.8, AST 23, ALT 15, Alkaline Phosphatase 53, C-Reactive Protein 0.8, Total Protein 8.0, Albumin 4.8, Globulin 3.2, Albumin/Globulin Ratio 1.5, Serum HCG, Qual Negative, HIV 1&2 Antibody Rapid Nonreactive Orders (Tests/Meds): ED MEDICATIONS Discontinued Medications Generic Name Dose Route Start Last Admin Trade Name León PRN Reason Stop Dose Admin Acetaminophen 1,000 mg 01/25/24 15:01/25/24 15:14 Acetaminophen 1,000mg/100ml Vial IV 01/25/24 15:06 1,000 mg ONCE ONE Administration Dexamethasone Sodium Phosphate 10 mg 01/25/24 15:01/25/24 15:14 Dexamethasone 4mg/Ml 5ml Mdv IV 01/25/24 15:06 10 mg ONCE ONE Administration Lactated Ringer's 1,000 mls @ 999 mls/hr 01/25/24 15:05 01/25/24 15:14 Lactated Ringer's 1000 Ml Bag IV 01/25/24 16:05 999 mls/hr .Q1H1M ONE Administration Iopamidol 80 ml 01/25/24 15:30 01/25/24 15:31 Iopamidol-370 (76%);100ml Bottle IV 01/25/24 15:31 80 ml ONCE ONE Administration Meclizine HCl 25 mg 01/25/24 15:05 01/25/24 15:14 Meclizine 25mg Tablet PO 01/25/24 15:06 25 mg ONCE ONE Administration Sodium Chloride 50 ml 01/25/24 15:30 01/25/24 15:31 0.9 % Sodium Chloride 50 Ml Vial IV 01/25/24 15:31 50 ml ONCE ONE Administration Sodium Chloride 10 ml 01/25/24 15:30 01/25/24 15:31 Sodium Chloride 0.9% 10ml Syr (Rad Only) IV 01/25/24 15:31 10 ml ONCE ONE Administration ORDERS Category Date Time Status CT angio head Stat Cat Scan 01/25/24 15:[address] angio neck Stat Cat Scan 01/25/24 15:[address] head/brain wo con Stat Cat Scan 01/25/24 15:05 Completed CBC w/Auto Diff [Complete Blood Count Auto Diff] Stat Lab 01/25/24 14:16 Completed CMP [Comprehensive Metabolic Panel] Stat Lab 01/25/24 14:16 Completed CRP [C-Reactive Protein] Stat Lab 01/25/24 14:16 Completed ESR [Erythrocyte Sedimentation Rate] Stat Lab 01/25/24 14:16 Completed HCG Qualitative, Serum Stat Lab 01/25/24 14:16 Completed HIV (1&2) Antibody Rapid Stat Lab 01/25/24 14:16 Completed Hep C Ab with Reflex to RNA Stat Lab 01/25/24 14:16 Received Urinalysis and Microscopic Stat Lab 01/25/24 13:39 Completed Medical Decision Narrative: In summary patient is a 43-year-old female who presents to the emergency department for evaluation of left-sided headache . Patient is hemodynamically stable upon arrival, afebrile. Physical exam is remarkable for soreness on palpating the left side of the face but no scalp tenderness no neck tenderness no carotid bruits Connie Coma Score 15 no focal neurologic deficits no nystagmus. Differential diagnosis includes trigeminal neuralgia versus giant cell arteritis versus atypical headache versus migraine etc. Initial workup will be conducted with hematologic labs CT scan of the head without contrast CTA of the head and neck. Initial interventions include crystalloid bolus acetaminophen Decadron meclizine. Initial workup reviewed by me shows her hematologic labs are nonactionable including normal ESR and CRP and my informal interpretation of her CT scan of her head shows no acute process and CTA and CT of the neck the same prior to radiology read. Upon repeat evaluation patient reported much improved after initial intervention. Given this I suspect patient has trigeminal neuralgia given the distribution and pattern and negative workup for other pathologies although migraine still could be possible it seems unlikely to be the entirety of her symptoms. Given this patient is appropriate for discharge with recommendations to continue her follow-up with neurology for further workup. I was consulted by the DICK, and we discussed the complexity of the problems being addressed. I approved the treatment and management plan for this patient's care in the Emergency Department, thus performing a substantive portion of the medical decision making. Jewel Coello MD Critical Care <YUNIER Bradley - Last Filed: 01/25/24 17:38> Critical Care Time Critical Care Time: No
--- NOTE | 2024-01-25 15:05 | CT_ITS ---
PROCEDURE INFORMATION: Exam: CTA Neck With Contrast Exam date and time: 01/25/2024 3:32 PM Age: 33 years old Clinical indication: Dizziness and giddiness; Additional info: Dizziness, headache, family history of aneurysm TECHNIQUE: Imaging protocol: Computed tomographic angiography of the neck with contrast. Exam focused on the cervical segments of the vasculature. 3D rendering (Not supervised by radiologist): MIP and/or 3D reconstructed images were created by the technologist. Radiation optimization: All CT scans at this facility use at least one of these dose optimization techniques: automated exposure control; mA and/or kV adjustment per patient size (includes targeted exams where dose is matched to clinical indication); or iterative reconstruction. Contrast material: ISOVUE 370; Contrast volume: 80 ml; Contrast route: INTRAVENOUS (IV); COMPARISON: CT ANGIO HEAD 01/25/2024 3:32 PM FINDINGS: Right common carotid artery: No stenosis. No dissection or occlusion. Right internal carotid artery: No stenosis of the extracranial segment. No dissection or occlusion. Right external carotid artery: No occlusion or stenosis of the origin. Left common carotid artery: No stenosis. No dissection or occlusion. Left internal carotid artery: No stenosis of the extracranial segment. No dissection or occlusion. Left external carotid artery: No occlusion or stenosis of the origin. Right vertebral artery: No stenosis. No dissection or occlusion. Left vertebral artery: No stenosis. No dissection or occlusion. Soft tissues: Normal. No significant soft tissue swelling. Bones/joints: No acute fracture. IMPRESSION: No stenosis or occlusion. REFERENCES: NASCET CRITERIA. The degree of stenosis in the cervical segment of the internal carotid artery is based on NASCET criteria. Normal is no stenosis. Mild is less than 50% stenosis. Moderate is 50-69% stenosis. Severe is 70% to 99% stenosis. Total occlusion is no detectable patent lumen.
--- NOTE | 2024-01-25 15:05 | CT_ITS ---
PROCEDURE INFORMATION: Exam: CT Head Without Contrast Exam date and time: 01/25/2024 3:32 PM Age: 33 years old Clinical indication: Dizziness; Additional info: Dizziness, headache TECHNIQUE: Imaging protocol: Computed tomography of the head without contrast. Radiation optimization: All CT scans at this facility use at least one of these dose optimization techniques: automated exposure control; mA and/or kV adjustment per patient size (includes targeted exams where dose is matched to clinical indication); or iterative reconstruction. COMPARISON: CT ANGIO HEAD 01/25/2024 3:32 PM FINDINGS: Brain: Normal. No hemorrhage. Unremarkable white matter. No mass effect. Cerebral ventricles: No ventriculomegaly. Paranasal sinuses: Visualized sinuses are unremarkable. No fluid levels. Mastoid air cells: Visualized mastoid air cells are well aerated. Bones: Unremarkable. No acute fracture. Soft tissues: Unremarkable. IMPRESSION: No acute intracranial abnormality.
--- NOTE | 2024-01-25 15:05 | CT_ITS ---
PROCEDURE INFORMATION: Exam: CTA Head With Contrast, Arteriography Exam date and time: 01/25/2024 3:32 PM Age: 33 years old Clinical indication: Dizziness and giddiness; Additional info: Dizziness, headache, family history of aneurysm TECHNIQUE: Imaging protocol: Computed tomographic angiography of the head with contrast. Exam focused on the arteries. 3D rendering (Not supervised by radiologist): MIP and/or 3D reconstructed images were created by the technologist. Radiation optimization: All CT scans at this facility use at least one of these dose optimization techniques: automated exposure control; mA and/or kV adjustment per patient size (includes targeted exams where dose is matched to clinical indication); or iterative reconstruction. Contrast material: ISOVUE 370; Contrast volume: 80 ml; Contrast route: INTRAVENOUS (IV); COMPARISON: CT HEAD/BRAIN WO CON 01/25/2024 3:32 PM FINDINGS: ANTERIOR CIRCULATION: Right internal carotid artery: Intracranial segment is patent with no significant stenosis. No aneurysm. Right middle cerebral artery: No occlusion or significant stenosis. No aneurysm. Right anterior cerebral artery: No occlusion or significant stenosis. No aneurysm. Left internal carotid artery: Intracranial segment is patent with no significant stenosis. No aneurysm. Left middle cerebral artery: No occlusion or significant stenosis. No aneurysm. Left anterior cerebral artery: No occlusion or significant stenosis. No aneurysm. POSTERIOR CIRCULATION: Right vertebral artery: No occlusion or significant stenosis. No aneurysm. Left vertebral artery: No occlusion or significant stenosis. No aneurysm. Basilar artery: No occlusion or significant stenosis. No aneurysm. Right posterior cerebral artery: No occlusion or significant stenosis. No aneurysm. Left posterior cerebral artery: No occlusion or significant stenosis. No aneurysm. Brain: No definite mass, mass effect, or midline shift. Cerebral ventricles: No ventriculomegaly. Bones/joints: Unremarkable. No acute fracture. Soft tissues: Unremarkable. IMPRESSION: No large vessel stenosis or occlusion.
[2024-01-25] MEDS: DEXAMETHASONE 4MG/ML 5ML MDV 10 MG IV (15:14)
[2024-01-25] MEDS: MECLIZINE 25MG TABLET 25 MG PO (15:14)
[2024-01-25] MEDS: LACTATED RINGERS 1000ML 1,000 ML 999 ML IV (15:14)
[2024-01-25] MEDS: ACETAMINOPHEN 1,000MG/100ML VIAL 1000 MG IV (15:14)
[2024-01-25 15:17] LABS: Albumin Level 4.8 g/dl (3.5-5.0); Chloride 108 mmol/L (98-107)
[2024-01-25 15:18] LABS: Potassium 4.1 mmoL/L (3.5-5.1); Sodium 139 mmol/L (136-145)
[2024-01-25 15:19] LABS: HCG Qualitative, Serum Negative (Negative)
[2024-01-25 15:20] LABS: Alanine Aminotransferase 15 U/L (12-78); Anion Gap 10.1 mEq/L (5-15); Aspartate Amino Transferase 23 U/L (14-36); Blood Urea Nitrogen 10 mg/dl (7-17); Carbon Dioxide 25 mmol/L (22.0-30.0); Creatinine Clearance Estimated 91 mL/min (50-200); Estimated Glomerular Filt Rate 63 ml/min (>60); GFR (African American) 77 ML/MIN (>60)
[2024-01-25 15:21] LABS: Albumin/Globulin Ratio 1.5 (1.1-1.8); Alkaline Phosphatase 53 U/L (38-126); Bilirubin,Total 0.8 mg/dl (0.2-1.3); Calcium 9.7 mg/dl (8.4-10.2); Globulin 3.2 g/dL (1.3-3.2); Glucose 94 mg/dl (74-100)
[2024-01-25 15:26] LABS: C-Reactive Protein 0.8 mg/L (0-4)
[2024-01-25] MEDS: IOPAMIDOL-370 (76%);100ML BOTTLE 80 ML IV (15:31)
[2024-01-25] MEDS: SODIUM CHLORIDE 0.9% 10ML SYR (RAD ONLY) 10 ML IV (15:31)
[2024-01-25] MEDS: 0.9 % SODIUM CHLORIDE 50 ML VIAL IV (15:31)
[2024-01-25 15:40] LABS: Basophils # 0.1 K/mm3 (0-0.2); Basophils % 0.5 % (0.1-2.0); Eosinophils # 0.1 K/mm3 (0.0-0.4); Eosinophils % 0.6 % (0.1-12.0); Hematocrit 46.8 % (37.0-47.0); Hemoglobin 14.9 g/dL (12.2-16.2); Lymphocytes # 1.5 K/mm3 (0.7-4.5); Lymphocytes % 14.4 % (10-50); Mean Corpuscular HGB Conc 31.8 g/dL (31.8-35.4); Mean Corpuscular Hemoglobin 31.1 pg (27.0-31.2); Mean Corpuscular Volume 97.9 fl (81-99); Mean Platelet Volume 7.8 fl (7.4-10.4); Monocytes # 0.4 K/mm3 (0.1-1.0); Monocytes % 3.6 % (1.7-9.3); Neutrophils # 8.5 K/mm3 (1.8-7.8); Platelet Count 326 K/mm3 (142-424); Red Blood Count 4.78 M/mm3 (4.20-5.40); White Blood Count 10.5 K/mm3 (4.8-10.8)
[2024-01-25 16:12] LABS: Erythrocyte Sedimentation Rate 7 mm/hr (0-20)
[2024-01-25 16:52] LABS: HIV (1&2) Antibody Rapid NONREACTIVE (NONREACTIVE)
[2024-01-27 05:10] LABS: HCV Ab Non Reactive (Non Reactive)
== END 2024-01-25 16:55 | disposition still patient (30) ==
LOC: UTC 13:34 → ER 13:43
PROVIDERS: Nurse Practitioner; Physician Assistant; Student in an Organized Health Care Education/Training Program; Emergency Provider Emergency Medicine; PCP Nurse Practitioner
DX: G50.0 Trigeminal neuralgia (principal); G44.89 Other headache syndrome
CPT/HCPCS: 70450; 70496; 70498; 80053; 81001; 84703; 85025; 85651; 86140; 86803; 87389; 96361; 96374; 96375; 99285; J0131; J1100; J7120; Q9967

== ENCOUNTER 2024-03-01 07:04 | Outpatient (CLI) | payer OTHER, SELFPAY ==
--- NOTE | 2024-03-01 07:12 | MR_ITS ---
FINAL REPORT CLINICAL HISTORY: opthalmoplegia 15 ml prohance COMPARISON: None FINDINGS: Multiplanar MR imaging of the brain was performed without and with contrast. There is no evidence of intracranial hemorrhage or mass. No abnormal extra-axial fluid collection is seen. The ventricular size is within normal limits. There is no evidence of shift of the midline structures. The posterior fossa and brainstem have an unremarkable appearance. No area of abnormal restricted diffusion is identified. There are left frontal and left parietal developmental venous anomalies (DVA's) of doubtful clinical significance. No abnormal contrast enhancement is seen. Normal major vessel vascular flow voids are noted. IMPRESSION: No acute intracranial abnormality identified. Reviewed, Interpreted and Dictated by Jonh Humphreys III, MD Transcribed by Lupe Foy Authenticated and [facility]
[2024-03-01 07:35] LABS: Blood Urea Nitrogen 13 mg/dl (7-17); Estimated Glomerular Filt Rate 51 ml/min (>60); GFR (African American) 62 ML/MIN (>60)
[2024-03-01] MEDS: SODIUM CHLORIDE 0.9% 10ML SYR (RAD ONLY) 10 ML IV (07:58)
[2024-03-01] MEDS: GADOTERIDOL INJ 20ML SYRINGE 15 ML IV (07:59)
== END 2024-03-01 23:59 | disposition home or self-care (01) ==
LOC: RAD 07:05
PROVIDERS: PCP Nurse Practitioner; Visit Provider Specialist
DX: H49.9 Unspecified paralytic strabismus (principal); Z82.49 Family history of ischemic heart disease and other diseases of the circulatory system; R51.9 Headache, unspecified
CPT/HCPCS: 36415; 70553; 82565; 84520; A9576

== ENCOUNTER 2024-04-15 09:00 | Outpatient (RCR) | payer OTHER, SELFPAY ==
--- NOTE | 2024-04-01 10:05 | HMH.PTOPEV ---
PT Outpatient Evaluation Rehab PT Outpatient Evaluation Start: 04/01/24 09:45 Freq: Status: Active Protocol: Document 04/01/24 09:45 LUIS (Rec: 04/01/24 10:03 LUIS [id number]) E-signed By Nii Gomez, PT Outpatient Therapy Subjective History Subjective History Patient is a 42 year old female presenting to outpatient PT with reports of chronic cervical with associated head aches/ migraines. Migraines specific to L periocular area. Patient also experiences referred pain to L UT mm. Symptoms of insidious onset starting approx 5 years ago. Most recent imaging negative. Poor postural awareness noted . Other comorbidities include hx of hypoglycemia, anxiety and HTN. New diagnosis of cancer in past 12 No months? Chief Complaint Pain,Stiff,Paresthesia Symptom Type Ache,Burning,Numbness Symptoms Relieved By Rest/Positioning,Heat,Ice, Prescription Meds Symptoms Aggravated By Physical Activity,Lifting Prior Functional Limitations None Current Functional Limitations Reaching,Lifting,Housework, Driving,Bending/Stooping Symptom Description Intermittent Level of pain today (0-10) 0 Pain scale - at its best (0-10) 0 Pain scale - at its worst (0-10) 9 Cervical Eval Palpation Cervical Muscles L Suboccipital,L CT Junction,L Upper Trapezius Cervical/Thoracic Palpation Findings Tenderness,Trigger Point Posture Head/C-Spine Posture Sitting Position Excess Extension Head/C-Spine Posture Standing Position Excess Extension Flexibility Deficits Upper Trapezius Muscle Length (L) Moderate Tightness Levaetor Scapulae Muscle Length (L) Moderate Tightness Pectoralis Minor Muscle Length (L) Moderate Tightness Passive Joint Mobility Cervical PIVM WNL: R OA L OA R AA L AA R C2/3 L C2/3 R C3/4 L C3/4 R C4/5 L C4/5 R C5/6 L C5/6 R C6/7 L C6/7 R C7/T1 L C7/T1 AROM Cervical Spine Extension Active Range of 56 Motion (degrees) Cervical Spine Flexion Active Range of 44 Motion (degrees) Cervical Spine Right Lateral Flexion 26 Active Range of Motion (degrees) Cervical Spine Left Lateral Flexion 48 Active Range of Motion (degrees) Cervical Spine Right Rotation Active 66 Range of Motion (degrees) Cervical Spine Left Rotation Active 52 Range of Motion (degrees) MMT Bilateral Deltoid (C5) 5 Normal Biceps Brachii Strength Grade 5 Normal Wrist Extension Strength Grade 5 Normal Triceps Brachii Strength Grade 5 Normal Wrist Flexion Strength Grade 5 Normal Extensor Pollicis Longus Strength Grade 5 Normal Finger Abduction Strength Grade 5 Normal Altered Sensation Left Upper extremity Dermatomes C4 Comment numbness/burning Special Test C-Spine Foraminal Compression (Spurling) Negative Left Test C-Spine Foraminal Distraction Test Positive Neck Disability Index Neck Disability Index Section 1: Pain Intensity The pain is very mild at moment Section 2: Personal Care (washing, I can look after myself dressing, etc.) normally without causing extra pain Section 3: Lifting I can lift heavy weights but it gives extra pain Section 4: Reading I can read as much as I want with moderate pain in my neck Section 5: Headaches I have severe headaches, which come frequently Section 6: Concentration I can concentrate fully when I want to with slight difficulty Section 7: Work I can do as much work as I want to Section 8: Driving I can drive my car as long as I want with moderate pain in my neck Section 9: Sleeping My sleep is midly disturbed (1 -2 hrs sleepless) Section 10: Recreation I am able to engage in all my recreation activities with some pain in NDI Score 14 Outpatient Therapy Assessment Impairments Problems/Impairmments Palpation Tenderness,Impaired Range of Motion,Impaired Driving,Impaired Lifting, Impaired Household Care, Subjective C/O Pain Prognosis Rehab Potential Good Clinical Impression Consistent with Diagnosis Yes Short Term Goals Number of Weeks 2 Decrease Subjective C/O Pain Yes: 5/10 at worst Patient to be Ind w/ HEP Yes Shelter Goals Number of Weeks 4-6 Decreased Palpation Tenderness Yes: 1/4 Increase Range of Motion Yes: WNL Restore Ability to Lift Objects to Yes: 10 lb without difficulty Shoulder Level Restore Ability to Lift Objects Overhead Yes: 10 lb without difficulty Improve Ability For Household Care Yes Return to Recreational Activities Yes Improve Neck Disability Index Score Yes: <12 Outpatient Therapy Plan of Care Treatment Plan May Include Therapeutic Exercise Including Home Yes Exercise Program Manual Therapy Techniques Yes Neuromuscular Re-education Yes Therapeutic Activities to Return to Yes Previous Functional/Work Level Gait Training Yes ADL/Self Care Education Yes Mechanical Traction Yes Dry Needling Yes Thermal Modalities Yes Electrical Stimulation Yes Ultrasound/Phonophoresis Yes Iontophoresis Yes Massage Yes Eval/Re-Eval Yes Frequency Times per week 2-3 Duration Number of Weeks 4-6 Addendums This patient is a candidate for social No or vocational rehab? Patient/Guardian verbally acknowledges Yes understanding of treatment program and consents to further treatment? Patient/Guardian verbally acknowledges Yes understanding of diagnosis, prognosis and goals for treatment? Eval Complexity PT Charges 03496 - Moderate Complexity Shoulder/Elbow Eval Shoulder Objective Measurements Elbow Objective Measurements PHYSICIAN CERTIFICATION: I certify the specified therapy services for Heather Hsu are required, authorized, and reviewed every 30 days.
== END 2024-04-15 23:59 | disposition home or self-care (01) ==
LOC: PT 09:00
PROVIDERS: PCP Nurse Practitioner; Visit Provider Specialist
DX: G44.1 Vascular headache, not elsewhere classified (principal)
CPT/HCPCS: 20561; 97014; 97110; 97163; 97530; G0283

== ENCOUNTER 2024-04-30 13:43 | Outpatient (RCR) | payer OTHER, SELFPAY | END 2024-04-30 23:59 | disposition home or self-care (01) | LOC: PT 13:43 | PROVIDERS: PCP Nurse Practitioner; Visit Provider Specialist | DX: G44.86 Cervicogenic headache (principal) | CPT/HCPCS: 20561; 97014; 97110; 97530; G0283 ==

== ENCOUNTER 2024-06-03 10:36 | Outpatient (CLI) | payer OTHER, SELFPAY ==
--- NOTE | 2024-06-03 10:37 | CT_ITS ---
FINAL REPORT TECHNIQUE: Thin section axial CT images of the facial bones and sinuses were obtained without contrast. Coronal and sagittal reformatted images were also obtained. This study was performed with techniques to keep radiation doses as low as reasonably achievable, (ALARA). Individualized dose reduction techniques using automated exposure control or adjustment of mA and/or kV according to the patient's size were employed. CLINICAL HISTORY: worsening in condition COMPARISON: 10/28/2023 FINDINGS: The paranasal sinuses are well aerated. There is no mucoperiosteal thickening. The ostiomeatal units are patent. There is no fracture. There are no air-fluid levels. IMPRESSION: Unremarkable exam. Reviewed, Interpreted and Dictated by Rober Rowell MD Transcribed by Wanda Charles Authenticated and . [facility]
== END 2024-06-03 23:59 | disposition home or self-care (01) ==
LOC: RAD 10:37
PROVIDERS: PCP Nurse Practitioner; Visit Provider Nurse Practitioner
DX: J34.89 Other specified disorders of nose and nasal sinuses (principal)
CPT/HCPCS: 70486

== ENCOUNTER 2024-12-11 11:55 | Emergency (ER) | payer OTHER, SELFPAY ==
--- OUTSIDE RECORDS SUMMARY | 2024-12-11 12:04 | XMS_ITS | Clinical Summary ---
Author Organization Healthcare Address [address] [place] [address] Care Team Providers Care Head Machine Feeder Name Role Phone Unavailable Primary Care Provider Unavailabl e Social History Tobacco Use Types Packs/Day Years Used Date Smoking Tobacco: Never Assessed Comments Unknown Sex and Gender Information Value Date Recorded Sex Assigned at Not on file Legal Sex Female 12:06 PM EDT Gender Identity Not on file Sexual Orientation Not on file Plan of Treatment Upcoming Encounters Date Type Department Care Team (Late st Contact Info) Description 03/01/2025 9:15 AM EST [facility] [address] [place] [phone] Irving Springer, DDS [address] [place] [address] Heather Mishra Health Maintenance Due Date Last Done Comments [facility]-Depression Screening 1989 [facility]-HIV Screening 1989 [facility]-Hepatitis C Screening 1989 [facility]-/Child/Adol SDOH Screenings 1989 [facility]-Varicella Vaccines (1 of 2 - 13+ 2-dose series) 2002 [facility]- SDOH Screenings 09/01/2007 [facility]-Adult SDOH Screenings 09/01/2007 [facility]-DTaP,Tdap,and Td Vaccine s (1 - Tdap) 2008 [facility]-Hepatitis B Vaccines (1 of 3 - 19+ 3-dose series) 2008 [facility]-Pap Smear 2010 HPV Vaccines (1 - 3-dose SCD M series) 2016 [facility]-Cervical Cancer Screening 09/01/2019 [facility]-HPV/Cotest 09/01/2019 [id number]-[id number] Vaccine (1 - 20 24-25 season) 2023 [facility]-Influenza Vaccine (#1) 2024 [facility]-Zoster Vaccines (1 of 2) 09/01/2039 [facility]-HIB Vaccines Aged Out No longer e ligible based on patient's age to complete this topic [facility]-Hepatitis A Vaccines Aged Out No longer eligible based on patient's age to complete this topic [facility]-IPV Vaccines Aged Out No longer e ligible based on patient's age to complete this topic [facility]-Pneumococcal Vaccine: Pediatrics (0 to 5 Years) and At-Risk Patients (6 to 49 Years) Aged Out No long er eligible based on patient's age to complete this topic [facility]-Rotavirus Vaccines Aged Out No lo nger eligible based on patient's age to complete this topic Insurance [employer]
--- OUTSIDE RECORDS SUMMARY | 2024-12-11 12:04 | XMS_ITS | Referral Summary ---
Author Organization [employer] ([place], [place], [place], [place]) Address [address] [place] [address] Care Team Providers Care Medicaid Service Coordinator Name Role Phone Mary Ortiz MD, Tra Unavailable [phone] Allergies Active Allergy Reactions Criticality Noted Date Comments Penicillin 08/03/2024 Medications sertraline (ZOLOFT) 50 MG tablet Take 1 tablet (50 mg total) by mouth daily. 07/28/2024 Active SUMAtriptan (IMITREX) 50 MG tablet Take 1 tablet (50 mg total) by mouth. 07/21/2024 Active propranoloL (INDERAL LA) 80 MG 24 hr capsule Take 1 capsule (80 mg total) by mouth daily. 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 Gender Identity Not on file Sexual Orientation Not on file Last Filed Vital Signs Vital Sign Reading Time Taken Comments Blood Pressure 120/80 08/03/2024 9:17 AM EDT Pulse 59 08/03/2024 9:17 AM EDT Temperature - - Respiratory Rate - - Oxygen Saturation - - Inhaled Oxygen Concentration - - Weight 73.9 kg (163 lb) 08/03/2024 9:17 AM EDT Height 170.2 cm (5' 7 ) 08/03/2024 9:17 AM EDT Body Mass Index 25.53 08/03/2024 9:17 AM EDT Plan of Treatment Not on file Insurance [facility] [employer] Care Teams Medicaid Service Coordinator Relationship Specialty Start Date End Date Tra Hernandez MD [address] [place] [address] Referring Physician Otolaryngology 06/15/24
--- OUTSIDE RECORDS SUMMARY | 2024-12-11 12:04 | XMS_ITS | Clinical Summary ---
Author Organization [facility] Address [address] [place] [address] Phone Care Team Providers Care Brand Leader Name Role Phone Unavailable Primary Care Provider Unavailabl e Allergies Active Allergy Reactions Criticality Noted Date Comments Penicillins 05/25/2014 Medications norethindrone-et hinyl estradiol (05/17) 1 mg-20 mcg (21)/75 mg (7) Oral Tablet Take 1 Tab by mouth daily. 28 Tab 2 05/27/2014 Active Active Problems No known active problems Surgical History Surgery Date Site/Laterality Comments WISDOM TOOTH EXTRACTION 2014 TONSILLECTOMY AND ADENOIDECTOMY 1999 Family History Medical History Relation Name Comments Hypertension Father Aneurysm Maternal Grandfather Heart Disease Maternal Grandfather Diabetes Maternal Uncle Aneurysm Mother Relation Name Status Comments Father Maternal Grandfather Maternal Uncle Mother Social History Tobacco Use Types Packs/Day Years Used Date Smoking Tobacco: Smoker, Current Status Unknown Alcohol Use Standard Drinks/Week Comments Yes 0 (1 standard drink = 0.6 oz pur e alcohol) occ Sexually Active Control Partners Comments Yes Male Comments Unknown Sex and Gender Information Value Date Recorded Sex Assigned at Not on file Legal Sex Female 3:13 PM EST Gender Identity Not on file Sexual Orientation Not on file Obstetrics History Last Filed Vital Signs Vital Sign Reading Time Taken Comments Blood Pressure 118/72 05/25/2014 1:49 PM EST Pulse - - Temperature - - Respiratory Rate - - Oxygen Saturation - - Inhaled Oxygen Concentration - - Weight 72.8 kg (160 lb 9.6 oz) 05/25/2014 1:49 P M EST Height - - Body Mass Index - - Plan of Treatment Health Maintenance Due Date Last Done Comments Annual Wellness Exam 1992 DTaP/TDaP/Td (1 - Tdap) 2008 Hepatitis B Vaccine (1 of 3 - 19+ 3-dose series) 2008 COVID-19 Vaccine ( - 2023-2 5 season) 2023 Influenza Vaccine (#1) 2024 Meningococcal B Vaccine Aged Out No l onger eligible based on patient's age to complete this topic Pneumococcal Vaccine 0-49 Aged Out No longer eligible based on patient's age to complete this topic
--- OUTSIDE RECORDS SUMMARY | 2024-12-11 12:04 | XMS_ITS | Clinical Summary ---
Author Organization [employer] ([place], [place], [place], [place]) Address [address] [place] [address] Care Team Providers Care Java Web Services Developer Name Role Phone Mary Ortiz MD, Tra Unavailable [phone] Allergies Active Allergy Reactions Criticality Noted Date Comments Penicillin 08/03/2024 Medications sertraline (ZOLOFT) 50 MG tablet Take 1 tablet (50 mg total) by mouth daily. 07/28/2024 Active SUMAtriptan (IMITREX) 50 MG tablet Take 1 tablet (50 mg total) by mouth. 07/21/2024 Active propranoloL (INDERAL LA) 80 MG 24 hr capsule Take 1 capsule (80 mg total) by mouth daily. 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 Gender Identity Not on file Sexual Orientation [...] 08/03/2024 9:17 AM EDT Plan of Treatment Health Maintenance Due Date Last Done Comments Depression Screening (12+) 2001 HIV Screening 2004 Hepatitis C Screening 09/01/2007 DTAP/TDAP/TD VACCINES (1 - Tdap) 2008 Pap Smear 2010 COVID-19 VACCINE (1 - 2023-2 5 season) 2023 Influenza Vaccine (#1) 2024 Tobacco Cessation Counseling and Screening (12+) 08/03/2025 08/03/2024 Pneumococcal Vaccine: 0-49 Years Aged Out No longer eligible based on patient's age to complete this topic Insurance [employer] Care Teams Java Web Services Developer Relationship Specialty Start Date End Date Tra Hernandez MD [address] [place] [address] Referring Physician Otolaryngology 06/15/24
--- OUTSIDE RECORDS SUMMARY | 2024-12-11 12:04 | XMS_ITS | Encounter Summary ---
Author Organization [employer] ([place], [place], [place], [place]) Address [address] [place] [address] Care Team Providers Care Rate Manager Name Role Phone Mary Ortiz MD, Tra Astorga [phone] Reason for Referral * Surgical (Routine) - Closed Specialty Diagnoses / Procedures Referred By Contact Referred To Contact Neurosurgery / Neurology Diagnoses Trigeminal nerve disorder Tra Hernandez MD [address] [place] [address] Phone: tel: fax: [facility] [employer] [address] [place] [phone] Phone: tel: fax: Referral ID Status Reason Start Date Expiration Date V isits Requested Visits Authorized [id number] Closed Specialty Services Required 06/15/2024 06/15/2025 1 1 Encounter Details Date Type Department Care Team (Late st Contact Info) Description 06/15/2024 Outside Orders [facility] [employer] [address] [place] [phone] Tra Hernandez MD [address] [place] [address] Trigeminal nerve disorder (Primary Dx) Social History Tobacco Use Types Packs/Day Years Used Date Smoking Tobacco: Never Assessed Comments Unknown Sex and Gender Information Value Date Recorded Sex Assigned at Not on file Legal Sex Female 2:54 PM AMBULATORY NURSE Gender Identity Not on file Sexual Orientation Not on file documented as of this encounter Plan of Treatment Scheduled Referrals Name Type Priority Associated Diagnoses Order Schedule Ambulatory referral to Neurosurgery Outpatient Referral Routine Trigeminal nerve disorder Ordered: 06/15/2024 documented as of this encounter Visit Diagnoses Diagnosis Trigeminal nerve disorder- Primary Unspecified trigeminal nerve disorder documented in this encounter Care Teams Rate Manager Relationship Specialty Start Date End Date Tra Hernandez MD [address] [place] [address] Referring Physician Otolaryngology 06/15/24 documented as of this encounter
[2024-12-11 12:07] VITALS: BP 127/82; PULSE 80; RESP 15; TEMP 37.4; O2SAT 100; BMI 25.8
--- NOTE | 2024-12-11 12:18 | ECG_ITS ---
APPROVED REPORT Exam: Resting ECG HR:74 bpm ECG Measurements Heart Rate [address] 144 P 73 QRSd 78 QRS 90 QT 367 T 55 QTc 394 Conclusion NSR Sinus arrhythmia Normal [place] Normal intervals NO STEMI Electronically signed by : Tomás Borjas, 12/11/2024 15:50:00
[2024-12-11 12:29] LABS: Hematocrit 41.4 % (37.0-47.0); Hemoglobin 14.2 g/dL (12.2-16.2); Immature Granulocytes % 0.2 %; Mean Corpuscular HGB Conc 34.3 g/dL (31.8-35.4); Mean Corpuscular Hemoglobin 30.6 pg (27.0-31.2); Mean Corpuscular Volume 89.2 fl (81-99); Nucleated Red Blood Cells % 0 %; Platelet Count 304 K/mm3 (142-424); Red Blood Count 4.64 M/mm3 (4.20-5.40); Red Cell Distribution Width-SD 41.2 fL; White Blood Count 5.8 K/mm3 (4.8-10.8)
[2024-12-11 12:35] LABS: Adenovirus,PCR Not Detected (NotDetected); Chlamydophila Pneumoniae, PCR Not Detected (NotDetected); Coronavirus 19, PCR Not Detected (NotDetected); Coronovirus HKU1,PCR Not Detected (NotDetected); Influenza A, PCR Not Detected (NotDetected); Influenza AH1, 2009 Not Detected (NotDetected); Influenza AH1, PCR Not Detected (NotDetected); Influenza AH3,PCR Not Detected (NotDetected); Influenza B, PCR Not Detected (NotDetected); Mycoplasma Pneumoniae, PCR Not Detected (NotDetected); Parainfluenza 1, PCR Not Detected (NotDetected); Parainfluenza 2, PCR Not Detected (NotDetected); Parainfluenza 3, PCR Not Detected (NotDetected); Parainfluenza 4, PCR Not Detected (NotDetected)
--- NOTE | 2024-12-11 12:35 | ED_ITS ---
<Statement entered by Tomás Borjas DO - 12/12/24 17:41> I was consulted by the DEEPA, and we discussed the complexity of problems being addressed. I approved the treatment and management plan for this patient's care in the emergency department, thus performing a substantive portion of the medical decision making. Tomás Borjas DO Discharge Plan Disposition Patient Disposition: Home, Self-Care Condition: Fair Prescriptions Prescriptions: No Action topiramate 100 mg tablet 100 mg PO DAILY Nurtec ODT 75 mg tablet,disintegrating 75 mg PO ONCE PRN propranolol 80 mg capsule,extended release 24 hr 80 mg PO DAILY Qty: 30 6RF sumatriptan succinate 100 mg tablet See Rx Instructions PO .COMPLEX Qty: 10 6RF Rx Instructions: take 1 tab at onset of headache; if no relief, may repeat 1 tab after at least 2 hrs; max = 2 tabs/24 hrs, max=4 tabs/week sumatriptan succinate 50 mg tablet 50 mg PO ONCE Patient Comments: TAKE 1 TABLET BY MOUTH TWICE DAILY NEEDED AT LEAST 2 HOURS BETWEEN DOSES sertraline 50 mg tablet 50 mg PO DAILY Patient Comments: TAKE 1 TABLET BY MOUTH ONCE DAILY lorazepam 1 mg tablet 1 mg PO DAILY PRN Patient Comments: TAKE 1 TABLET BY MOUTH ONCE DAILY NEEDED FOR ANXIETY Referrals Follow up/Referrals: Gianna Nava APRN [Primary Care Provider, Medical] - See instructions Activity Restrictions/Add. Instructions Additional Instructions/Restrictions: Today you were evaluated in the emergency department, your lab work was overall unremarkable. Please check your respiratory panel swab in about 2 hours after you leave the ED. It should be on your portal deepa. If you have any questions, please feel free to call me in the ED today. As we discussed, you will need to follow-up with your primary care provider this week and return to the ED for any worsening of your condition. Rest, increase your fluid intake, continue to take Tylenol or Motrin [id number] for symptomatic relief. Clinical Impressions Clinical Impression: Fatigue Instructions Patient Instructions: DI for Fatigue Print Language Print Language: [place]i Discharge ED Provider: Tomás Borjas General Adult HPI <Margarita White APRN - Last Filed: 12/11/24 16:16> General Chief complaint: Nausea/Vomiting/Diarrhea Stated complaint: pain left side of face, vomiting Time Seen by Provider: 12/11/24 12:20 Mode of Arrival: Ambulatory Source of Information: Patient Description of Symptoms (Recalled from ER Triage Doc. by RN): pt presents to ED with c/o left sided facial pain that has been ongoing for 7 years. pt reports nausea that began yesterday morning. History of Present Illness HPI narrative: patient is a 34-year-old female PMHx trigeminal neuralgia, history of headaches, anxiety, history of palpitations who presents to the ED for complaints of nasal congestion, overall feeling unwell, fatigue, nausea, chills and sweating for the past few days. Patient has been evaluated by her PCP twice this week, placed on antibiotic for left ear infection. She was evaluated again and placed on gabapentin 2 days ago for her left-sided facial pain which she states has resolved the facial pain. Related Data Home Medications ?Medication ?Instructions ?Recorded ?Confirmed sertraline 50 mg tablet 50 mg PO DAILY 01/25/2404/30 lorazepam 1 mg tablet 1 mg PO DAILY PRN 03/17/24 0 05/27/24 rimegepant 75 mg disintegrating 75 mg PO ONCE PRN 04/3005/27/24 [facility] topiramate 100 mg tablet 100 mg PO DAILY 05/27/24 sumatriptan succinate 50 mg tablet 50 mg PO ONCE 06/0706/07/24 Previous Rx's ?Medication ?Instructions ?Recorded propranolol 80 mg capsule,24 80 mg PO DAILY Migraine # 30 caps 03/17/24 hr,extended release sumatriptan succinate 100 mg tablet See Rx Instruction s PO .COMPLEX 03/17/24 #10 tabs Allergies Allergy/AdvReac Type Severity Reaction Status Date / Time Penicillins Allergy Other Verified 12/11/24 13:02 [facility] <Margarita White APRN - Last Filed: 12/11/24 16:16> [facility] Disclaimer: The information contained in this section may have been updated after the patient was seen, as this information can be updated by other users. 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 Travel in the last 8 weeks?: None household members: spouse and children housing: house marital status: number of children: 2 Have you lived/traveled outside [place] in past 30 days?: No Contact w/someone who lives/traveled outside [place] past 30 days?: No Exposure to someone with infectious disease in past 14 days?: No Do you have a fever (greater than 100.4 F or 38 C)?: No Have you tested positive for COVID-19?: No Exposed to someone with COVID-19 in past 14 days?: No Do you have a sore throat?: No Do you have a cough?: No Do you have any weakness?: No Do you have any diarrhea?: No Are you experiencing any unusual bleeding?: No Do you have any muscle aches/pain?: No Do you have any abdominal pain?: No Are you experiencing loss of taste or smell?: No Other Medical History Have you received the Flu Vaccine for this season: No Have you received the Pneumonia Vaccine: No <Margarita White APRN - Last Filed: 12/11/24 16:16> ROS Obtained: Yes Systems reviewed as appropriate & no additional complaints except as documented Physical Exam <SOLOMON Spear Last Filed: 12/11/24 16:16> General General appearance: alert Head Head exam: atraumatic Eye Eye exam: Present PERRL and EOMI ENT ENT exam: Present normal exam Neck Neck exam: Present full ROM; Absent tenderness Respiratory Respiratory exam: Present normal lung sounds bilaterally Cardiovascular Cardiovascular exam: Present regular rate Abdominal Exam Abdominal exam: Present soft; Absent tenderness Extremities Exam Extremities exam: Present normal inspection and full ROM Back Exam Back exam: Present full ROM Neurological Exam Neurological exam: Present alert and oriented X3 Skin Skin exam: Present warm and dry Medical Decision Making <SOLOMON Spear Last Filed: 12/11/24 16:16> Medical Records Screening: Per USPSTF and CDC recommendations, given the prevalence of disease in our region, it is our hospital?s policy to screen for HIV and viral Hepatitis for all patients aged 18 and over and those with ongoing risk factors. Darek Inquiry Pt receiving controlled substance: No Vital Signs: 12/11/24 12:07 12/11/24 12:52 12/11/24 14:05 Temperature 99.4 F 98.9 F Temperature Source Oral Pulse Rate 78 78 Pulse Rate [Left Radial] 80 Respiratory Rate 15 16 16 Blood Pressure 120/84 120/84 Blood Pressure [Right Arm] 127/82 Blood Pressure Mean [Right Arm] 97 Blood Pressure Source [Right Arm] Automatic Cuff Blood Pressure Position [Right Arm] Supine 02 Sat by Pulse Oximetry 100 100 Oxygen Delivery Method Room Air Lab Data Lab Results 12/11/24 11:16: Serum HCG, Qual Negative 12/11/24 12:23: WBC 5.8, RBC 4.64, Hgb 14.2, Hct 41.4, MCV 89.2, MCH 30.6, MCHC 34.3, RDW 12.7, Plt Count 304, MPV 9.8, Neut % (Auto) 65.9, Lymph % (Auto) 26.4, [place] % (Auto) 5.6, Eos % (Auto) 1.4, Baso % (Auto) 0.5, Neut # (Auto) 3.8, Lymph # (Auto) 1.5, [place] # (Auto) 0.3, Eos # (Auto) 0.1, Baso # (Auto) 0.0, Sodium 139, Potassium 4.2, Chloride 105, Carbon Dioxide 28, Anion Gap 10.2, BUN 11, Creatinine 0.90, Estimated Creat Clear 109, Estimated GFR 71, Est GFR ( Amer) 86, Glucose 94, Calcium 9.2, Total Bilirubin 0.7, AST 27, ALT 19, Alkaline Phosphatase 56, Troponin I < 0.01, Total Protein 7.5, Albumin 4.5, Globulin 3.0, Albumin/Globulin Ratio 1.5 12/11/24 12:32: Chlamy pneumoniae PCR Not detected, Adenovirus (PCR) Not detected, B. pertussis DNA (PCR) Not detected, Coronavirus OC43 (PCR) Not detected, Coronavirus HKU1 (PCR) Not detected, Coronavirus 229E (PCR) Not detected, SARS-CoV-2 (PCR) Not detected, Coronavirus NL63 (PCR) Not detected, Human Metapneumovir PCR Not detected, Influenza A (H1) PCR Not detected, Influ A (H1N1/09) PCR Not detected, Influenza A (H3) PCR Not detected, Influenza Type A (PCR) Not detected, Influenza Type B (PCR) Not detected, M. pneumoniae (PCR) Not detected, Parainfluenza 1 (PCR) Not detected, Parainfluenza 2 (PCR) Not detected, Parainfluenza 3 (PCR) Not detected, Parainfluenza 4 (PCR) Not detected, RSV (PCR) Not detected, Entero/Rhino (PCR) Not detected 12/11/24 12:23 12/11/24 12:23 Orders (Tests/Meds): ED MEDICATIONS Discontinued Medications Generic Name Dose Route Start Last Admin Trade Name Freq PRN Reason Stop Dose Admin Sodium Chloride 1,000 mls @ 999 mls/hr 12/11/24 12:18 12/11/24 12:48 Sod Chlor 0.9% 1000ml Bag IV 12/11/24 13:18 999 mls/hr .Q1H1M ONE Administration Promethazine HCl 12.5 mg 12/11/24 12:18 12/11/24 12:49 Promethazine Hcl 25mg/Ml 1ml Vial IV 12/11/24 12:19 12.5 mg ONCE ONE Administration Sodium Chloride 25 ml 12/11/24 12:18 12/11/24 12:49 Sodium Chloride 0.9% 25ml Bag IV 12/11/24 12:19 25 ml ONCE ONE Administration ORDERS Category Date Time Status CBC w/Auto Diff [Complete Blood Count Auto Diff] Stat Lab 12/11/24 12:23 Completed CMP [Comprehensive Metabolic Panel] Stat Lab 12/11/24 12:23 Completed Full Resp Panel w/COVID ([facility]) Routine Lab 12/11/24 12:32 Completed HCG Qualitative, Serum Stat Lab 12/11/24 11:16 Completed Trop I [Troponin I] Stat Lab 12/11/24 12:23 Completed Medical Decision Narrative: In summary, patient is a 34-year-old female PMHx trigeminal neuralgia, history of headaches, anxiety, history of palpitations who presents to the ED for complaints of nasal congestion, overall feeling unwell, fatigue, nausea, chills and sweating for the past few days. Patient has been evaluated by her PCP twice this week, placed on antibiotic for left ear infection. She was evaluated again and placed on gabapentin 2 days ago for her left-sided facial pain which she states has resolved the facial pain. She advises since she started the azithromycin she has had vomiting. States she has taken Zofran without relief. Denies visual changes, posterior neck pain, chest pain, shortness of breath, abdominal pain, dysuria. Upon initial evaluation patient is alert, oriented and cooperative. She is hemodynamically stable. Physical exam unremarkable, abdomen is soft and nontender. Discussed with patient we will proceed with labs, respiratory swab and symptomatic medication including IVF & promethazine. CBC unremarkable for any leukocytosis, stable H&H. CMP unremarkable for any actionable abnormalities. Troponin < 0.01. Upon reassessment, patient states that her condition has not changed, she states she continues to feel overall unwell. Advised patient that the gabapentin may be making her feel fatigued. Shared decision making used, I offered patient Tylenol Motrin which she states she can take at home. I discussed that she will need to go home and increase her fluid intake, rest, continue to take acetaminophen and ibuprofen [id number] for symptomatic relief. We discussed the importance of follow-up with PCP and return precautions to the ED. Advised patient she will need to check her respiratory panel on the portal deepa and if she has any questions she can call me in the ED. She was hemodynamically stable and ambulatory upon leaving the ED. <Tomás Borjas, DO - Last Filed: 12/11/24 13:03> Vital Signs: 12/11/24 12:07 12/11/24 12:52 12/11/24 14:05 Temperature 99.4 F 98.9 F Temperature Source Oral Pulse Rate 78 78 Pulse Rate [Left Radial] 80 Respiratory Rate 15 16 16 Blood Pressure 120/84 120/84 Blood Pressure [Right Arm] 127/82 Blood Pressure Mean [Right Arm] 97 Blood Pressure Source [Right Arm] Automatic Cuff Blood Pressure Position [Right Arm] Supine 02 Sat by Pulse Oximetry 100 100 Oxygen Delivery Method Room Air Lab Data Lab Results 12/11/24 11:16: Serum HCG, Qual Negative 12/11/24 12:23: WBC 5.8, RBC 4.64, Hgb 14.2, Hct 41.4, MCV 89.2, MCH 30.6, MCHC 34.3, RDW 12.7, Plt Count 304, MPV 9.8, Neut % (Auto) 65.9, Lymph % (Auto) 26.4, [place] % (Auto) 5.6, Eos % (Auto) 1.4, Baso % (Auto) 0.5, Neut # (Auto) 3.8, Lymph # (Auto) 1.5, [place] # (Auto) 0.3, Eos # (Auto) 0.1, Baso # (Auto) 0.0, Sodium 139, Potassium 4.2, Chloride 105, Carbon Dioxide 28, Anion Gap 10.2, BUN 11, Creatinine 0.90, Estimated Creat Clear 109, Estimated GFR 71, Est GFR ( Amer) 86, Glucose 94, Calcium 9.2, Total Bilirubin 0.7, AST 27, ALT 19, Alkaline Phosphatase 56, Troponin I < 0.01, Total Protein 7.5, Albumin 4.5, Globulin 3.0, Albumin/Globulin Ratio 1.5 12/11/24 12:32: Chlamy pneumoniae PCR Not detected, Adenovirus (PCR) Not detected, B. pertussis DNA (PCR) Not detected, Coronavirus OC43 (PCR) Not detected, Coronavirus HKU1 (PCR) Not detected, Coronavirus 229E (PCR) Not detected, SARS-CoV-2 (PCR) Not detected, Coronavirus NL63 (PCR) Not detected, Human Metapneumovir PCR Not detected, Influenza A (H1) PCR Not detected, Influ A (H1N1/09) PCR Not detected, Influenza A (H3) PCR Not detected, Influenza Type A (PCR) Not detected, Influenza Type B (PCR) Not detected, M. pneumoniae (PCR) Not detected, Parainfluenza 1 (PCR) Not detected, Parainfluenza 2 (PCR) Not detected, Parainfluenza 3 (PCR) Not detected, Parainfluenza 4 (PCR) Not detected, RSV (PCR) Not detected, Entero/Rhino (PCR) Not detected Orders (Tests/Meds): ED MEDICATIONS Discontinued Medications Generic Name Dose Route Start Last Admin Trade Name Freq PRN Reason Stop Dose Admin Sodium Chloride 1,000 mls @ 999 mls/hr 12/11/24 12:18 12/11/24 12:48 Sod Chlor 0.9% 1000ml Bag IV 12/11/24 13:18 999 mls/hr .Q1H1M ONE Administration Promethazine HCl 12.5 mg 12/11/24 12:18 12/11/24 12:49 Promethazine Hcl 25mg/Ml 1ml Vial IV 12/11/24 12:19 12.5 mg ONCE ONE Administration Sodium Chloride 25 ml 12/11/24 12:18 12/11/24 12:49 Sodium Chloride 0.9% 25ml Bag IV 12/11/24 12:19 25 ml ONCE ONE Administration ORDERS Category Date Time Status CBC w/Auto Diff [Complete Blood Count Auto Diff] Stat Lab 12/11/24 12:23 Completed CMP [Comprehensive Metabolic Panel] Stat Lab 12/11/24 12:23 Completed Full Resp Panel w/COVID ([facility]) Routine Lab 12/11/24 12:32 Completed HCG Qualitative, Serum Stat Lab 12/11/24 11:16 Completed Trop I [Troponin I] Stat Lab 12/11/24 12:23 Completed ECG Data Tracing #1: I reviewed this ECG and interpreted as documented below: EKG personally interpreted by me demonstrates normal sinus rhythm with a rate of 74 bpm, normal axis, no [place] prolongation, narrow QRS, no QTc prolongation. No ST elevation or depression. No overt signs of ischemia or arrhythmia Critical Care <Margarita White APRN - Last Filed: 12/11/24 16:16> Critical Care Time Critical Care Time: No
[2024-12-11 12:40] LABS: Albumin Level 4.5 g/dl (3.5-5.0); Chloride 105 mmol/L (98-107); Potassium 4.2 mmoL/L (3.5-5.1); Sodium 139 mmol/L (136-145)
[2024-12-11 12:43] LABS: Alanine Aminotransferase 19 U/L (12-78); Albumin/Globulin Ratio 1.5 (1.1-1.8); Alkaline Phosphatase 56 U/L (38-126); Anion Gap 10.2 mEq/L (5-15); Aspartate Amino Transferase 27 U/L (14-36); Bilirubin,Total 0.7 mg/dl (0.2-1.3); Blood Urea Nitrogen 11 mg/dl (7-17); Calcium 9.2 mg/dl (8.4-10.2); Carbon Dioxide 28 mmol/L (22.0-30.0); Creatinine Clearance Estimated 109 mL/min (50-200); Creatinine,Serum 0.90 mg/dl (0.52-1.04); Estimated Glomerular Filt Rate 71 ml/min (>60); GFR (African American) 86 ML/MIN (>60); Globulin 3.0 g/dL (1.3-3.2); Glucose 94 mg/dl (74-100); Total Protein,Serum 7.5 g/dl (6.3-8.2)
[2024-12-11] MEDS: 0.9 % SODIUM CHLORIDE 1000ML 1,000 ML 999 ML IV (12:48)
[2024-12-11 12:49] LABS: HCG Qualitative, Serum Negative (Negative)
[2024-12-11] MEDS: SODIUM CHLORIDE 0.9% 25ML BAG 25 ML IV (12:49)
[2024-12-11] MEDS: PROMETHAZINE HCL 25MG/ML 1ML VIAL 12.5 MG IV (12:49)
[2024-12-11 12:52] VITALS: BP 120/84; PULSE 78; RESP 16; O2SAT 100
[2024-12-11 12:58] LABS: Troponin I < 0.01 ng/ml (0.00-0.034)
[2024-12-11 14:05] VITALS: BP 120/84; PULSE 78; RESP 16; TEMP 37.2; O2SAT 100
== END 2024-12-11 14:05 | disposition home or self-care (01) ==
PROVIDERS: Nurse Practitioner; Emergency Provider Student in an Organized Health Care Education/Training Program; PCP Nurse Practitioner
DX: R53.83 Other fatigue (principal); R09.81 Nasal congestion; R11.0 Nausea
CPT/HCPCS: 0223U; 80053; 84484; 84703; 85025; 93005; 96361; 96374; 99284; J2550; J7030